=== PATIENT | female | born 1955 | race Caucasian/White ===

== ENCOUNTER 2018-04-01 09:52 | Inpatient (IN) ==
[~2018-04-01 09:52] MED LIST: Bacitracin 50,000 UNIT, Polymyxin B Sulfate 500,000 UNIT, Sodium Chloride IRRigation 1,... IR ONE
[2018-04-01] MEDS ORDERED: CeFAZolin Syr 2,000MG/20 ML 2,000 MG/20 ML SYRINGE IVPB ONE (10:13)
[2018-04-01] MEDS ORDERED: Albuterol 2.5 MG/3 ML NEBULIZER IH ONE (10:13)
[2018-04-01] MEDS ORDERED: Ringers Solution, Lactated 1,000 ML IVC SCH (10:15)
[2018-04-01] MEDS ORDERED: Famotidine 20 MG/2 ML VIAL IVP ONE (10:45)
[2018-04-01] MEDS ORDERED: Acetaminophen IV 1,000 MG/100 ML INFUS..BTL IVPB ONE (10:45)
[2018-04-01] MEDS ORDERED: Gabapentin 300 MG CAPSULE PO ONE (10:45)
--- NOTE | 2018-04-01 10:45 | Anesthesia Evaluation PreOp ---
Date of Encounter: 04/01/18 Time of Encounter: 10:43 - Past History Planned Operation: PLIF L4-5 Cardiac History: Hyperlipidemia Pulmonary History: Smoker (1 ppd) ERGONOMIC SPECIALIST History: Other (lumbar stenosis with radiculopathy bilateral legs, anxiety) Other Medical History: Thyroid (hypo) Anesthesia History: No Prior Anesthetic Complications, Past Anesthesia (bilateral total hip) : No Alcohol Use: none Drug use: none Medications and Allergies Ferrous Sulfate [Iron] 325 mg PO DAILY 10/14/16 [History] Levothyroxine [Synthroid] 112 mcg PO DAILY 10/14/16 [History] Meloxicam 15 mg PO DAILY 10/14/16 [History] Omeprazole [PriLOSEC] 40 mg PO DAILY 10/14/16 [History] Simvastatin [Zocor] 40 mg PO QPM 10/14/16 [History] Tramadol HCl [Ultram] 50 mg PO BID PRN MDD N 10/14/16 [History] Acetaminophen [Tylenol] 1,000 mg PO Q6H PRN 04/01/18 [History] Biotin 10,000 mcg PO DAILY 04/01/18 [History] BuPROPion XL (24 HR) [Wellbutrin XL] 150 mg PO DAILY 04/01/18 [History] Calcium Carbonate [Calcium] 600 mg PO DAILY 04/01/18 [History] Duloxetine HCl [Cymbalta] 60 mg PO DAILY 04/01/18 [History] Gabapentin [Neurontin] 300 mg PO TID 04/01/18 [History] Melatonin 10 mg PO HS PRN 04/01/18 [History] Pyridoxine HCl [Vitamin B-6] 100 mg PO DAILY 04/01/18 [History] Vitamin B Complex [B Complex] 1 each PO DAILY 04/01/18 [History] Allergy/AdvReac Type Severity Reaction Status Date / Time No Known Allergies Allergy Verified 04/01/18 10:44 - Meds/Allergy Pre-op Review Medications Reviewed: Yes Allergies Reviewed: Yes Beta Blockers on Current Med List: No Anesthesia Results - Labs Laboratory Tests 03/30/18 03/30/18 03/30/18 15:38 15:38 15:38 WBC 7.2 Hgb 11.6 Hct 34.8 L Plt Count 286 PT 10.8 INR 1.0 APTT 38.5 H Sodium 133 L Potassium 4.9 Chloride 103 Carbon Dioxide 25 BUN 14 Creatinine 0.71 Est GFR (Non-Af Amer) > 60 Anesthesia Exam Vital Signs/O2 Sat/Glucose, Most Recent Temp Pulse Resp BP Pulse Ox 97.9 F 67 18 135/56 97 04/01/18 10:21 04/01/18 10:21 04/01/18 10:21 04/01/18 10:21 04/01/18 10:21 Height: 1.75 Weight: 64 kg NPO (# of Hours): > 8 hr - HEENT Pupil (Motor): Pupils equal Mallampati: II Denture Type: Upper: Complete, Lower: Complete Oral Opening: Greater than 3 - ERGONOMIC SPECIALIST LOC: Oriented ERGONOMIC SPECIALIST Motor: Normal RUE, Normal LUE, Normal RLE, Normal LLE, Normal Face ERGONOMIC SPECIALIST Sensory: Normal: RUE, LUE, RLE, LLE, Face - Cardiac Rhythm: Regular Murmur: None - Pulmonary Breath Sounds: bilateral Clear Respiratory Effort: Symmetrical Anesthesia Assess/Plan ASA Score: 2 Modified Savage Scale for Level of Consciousness: Cooperative, oriented, and tranquil Anesthetic Plan: General Monitoring Plan: Standard Monitors Recovery Plan: PACU
[2018-04-01] MEDS ORDERED: Ondansetron 4 MG/2 ML VIAL ONE (12:00)
[2018-04-01] MEDS ORDERED: Dexamethasone 4 MG/ML VIAL ONE (12:00)
[2018-04-01] MEDS ORDERED: Lidocaine -MPF 4% 5 ML AMPUL ONE (12:00)
[2018-04-01] MEDS ORDERED: *HR* Succinylcholine 200 MG/10 ML VIAL IVP ONE (12:00)
[2018-04-01] MEDS ORDERED: Lidocaine -MPF 2% 2 ML VIAL ONE (12:00)
[2018-04-01] MEDS ORDERED: *HR* Propofol 200 MG/20 ML VIAL IVP ONE (12:00)
[2018-04-01] MEDS ORDERED: *HR* Midazolam HCl 2 MG/2 ML VIAL ONE (12:00)
--- NOTE | 2018-04-01 13:00 | History & Physical Report ---
Date of Encounter: 04/01/18 Time of Encounter: 12:59 24 Hour HP Update - Instructions Instructions: If the History and Physical is less than 30 days old and was completed prior to A.M. admission and or procedure and has NOT been updated on calendar day of procedure please complete this update prior to performing procedure. - Update Patient reports changes in Medical Condition: No Changes in examination, assessment, or condition: No Changes in Medication: No Preop tests/diagnostics Reviewed: Yes Pre-Op MRSA Screen: Negative Surgery Remains Indicated: Yes Consent for Planned Operative Procedure(s) Verified: Yes - Pre-Operative Checklist Preoperative Checklist Indicated: No Prophylactic Antibiotic Ordered: Yes Home Medications Include Beta Sophia: No Beta Sophia Taken Today (Day of Surgery): No Beta Sophia Taken Yesterday (Day Prior to Surgery): No Is VTE Prophylaxis Indicated?: Yes
[2018-04-01] MEDS ORDERED: *HR* FentaNYL (PF) 100 MCG/2 ML VIAL ONE (13:14)
[2018-04-01] MEDS ORDERED: *HR* Remifentanil 1 MG VIAL IVP ONE (13:28)
[2018-04-01] MEDS ORDERED: EPHEDrine 50 MG/ML VIAL ONE (13:46)
[2018-04-01] MEDS ORDERED: Albuterol 2.5 MG/3 ML NEBULIZER IH PRN (14:25)
[2018-04-01] MEDS ORDERED: *HR* Promethazine 25 MG/ML VIAL IVP PRN (14:25)
--- NOTE | 2018-04-01 16:09 | Orthopedic Operative Note ---
Date of procedure: 04/01/18 Pre-op diagnosis: Spondylolisthesis, lumbar stenosis, lumbar radiculopathy Post-op diagnosis: same Operation/Findings: Posterior lumbar interbody fusion L4-L5: The patient successfully underwent general endotracheal anesthesia. The patient was given antibiotics prior to the start of the procedure. Compression boots and stockings were used for deep vein thrombosis prophylaxis. A Vital catheter was placed. Leads for neuro monitoring were placed on the upper and lower extremities. This included the cranium. The neuro monitoring personnel confirmed there were satisfactory readings prior to the start of the procedure. The patient was turned prone on the Ck table. The back was prepped and draped in the usual sterile fashion. An incision was was marked and centered over the involved levels in the mid line. The incision was deepened through the lumbar fascia. Bovie cautery and Archer elevators were used to reflect the paraspinal musculature at the lateral extent of the transverse processes of the involved levels. Catherine clamps were placed over the spinous processes. An intraoperative lateral fluoroscopy graft was obtained. A conversation was held between the surgeon and radiologist and both confirmed we had the correct operative levels. We then placed pedicle screws in standard fashion with the aid of fluoroscopy and anatomic landmarks. Briefly a starter awl was used. A gearshift was subsequently used to enter the airplane pilot commercial hole via a transpedicular route into the vertebral body. The airplane pilot commercial hole was tapped with an undersized instrument, and subsequently 6.5 x 40 mm pedicle screws were placed bilaterally at the indicated levels. The screws were tested with the aid of the neurologic monitoring staff via pedicle screw stimulation. All reading suggested there was no significant cortical wall breech. The screws were also evaluated fluoro- graphically and appeared to be in satisfactory position. We then turned our attention to the decompression portion of the procedure. We removed the supraspinous and interspinous ligaments and subsequently the insertion of the ligamentum flavum on the undersurface of the proximal lamina was dislodged with a curette. We then removed the ligamentum flavum as well as undercut the facets at this level to decompress the lateral recesses. We also performed a laminectomy. After the decompression which was over and above that which was required to place the interbody graft, the foramen and traversing roots at this level were found to be free and patent. We also took part of the medial facet in order to aid in the decompression. We then protected the neural elements including the thecal sac and traversing nerve root on the right with a dural retractor. We made an annulotomy into the disc space and then removed disc material using lPituitary instruments. We trialed various size grafts after the endplates were prepared for graft insertion. A 10 x 26 enter body graft fit well within the disc space. We obtained some bone from the posterior superior iliac spine through us a separate incision and combined with this with the bone which we had saved from the laminectomy portion of the procedure. This autograft bone was first placed in the anterior portion of the disc space and additional bone was placed within the interbody graft spacer. We then placed the interbody graft spacer obliquely across the disc space towards the midline while protecting the neural elements with a root retractor. When the graft was found to be in satisfactory position the gaming commissioner was removed. We then copiously irrigated the wound. We then decorticated the transverse processes as well as the facet joints of the involved levels to aid in the posterolateral fusion. We placed autograft bone in the lateral gutters over these regions. We then placed rods within the screw heads of the involved levels and first locked the distal screws and then subsequently locked the proximal screws so as to improve and reduce the spondylolisthesis previously seen. We then closed the wound in layers with 1 Vicryl for the fascia, 2-0 Vicryl. Subcutaneous tissue, and Dermabond was used for skin closure. Sterile dressings were placed over the wound. The patient was turned supine on a hospital bed and extubated. All sponge instruments and needle counts were correct at the end of the procedure. The patient tolerated the procedure well without complications. Anesthesia: GETA Surgeon: Jorge Lynne Jr Was there an assistant quality manager present: No Estimated blood loss (cc): 100 Specimen: None Condition: stable Disposition: PACU
[2018-04-01] MEDS: *HR* Morphine 2 MG/ML SYRINGE IVP PRN ×3 (16:40→17:05)
--- NOTE | 2018-04-01 17:08 | Anesthesia Evaluation Post Op ---
Date of Encounter: 04/01/18 Time of Encounter: 17:08 - Vital Signs Vital Signs: Vital Signs/O2 Sat/Glucose, Most Current Temp Pulse Resp BP Pulse Ox 04/01/18 16:53 98.5 F 91 14 169/78 92 04/01/18 16:43 92 18 174/75 95 04/01/18 16:33 103 18 170/80 98 04/01/18 16:23 99.1 F 104 16 159/80 100 - Lungs Lungs: Clear Ascult./Percussion - Airway Airway: Non-obstructed - Cardiovascular Regular Rate, Baseline Rhythm - Mental Status Mental Status: Alert & Oriented, Answers Appropriately - Pain Pain Scale: 2 Pain Scale used: Numeric (1 - 10) - Nausea Vomiting Nausea Vomiting: Not Present - Hydration Hydration: Tolerates oral liquids, Vital catheter - Discharge PostOp Status: Transfer Patient to floor
[2018-04-01] MEDS ORDERED: Melatonin 3 MG TABLET PO PRN (17:53)
[2018-04-01] MEDS ORDERED: Naloxone 0.4 MG/ML INJ IVP PRN (17:53)
[2018-04-01] MEDS ORDERED: *HR* HYDROcodone/Acet 5/325 mg TABLET PO PRN (17:53)
[2018-04-01] MEDS: *HR* OxyCODONE Immed Rel 5 MG TABLET PO PRN ×2 (18:58→23:50)
[2018-04-01] MEDS: Ringers Solution, Lactated 1,000 ML IVC SCH (18:59)
[2018-04-01] MEDS: Acetaminophen 325 MG TABLET PO PRN (23:20)
[2018-04-02] MEDS: Ondansetron 4 MG/2 ML VIAL IVP PRN ×2 (03:07→09:29)
[2018-04-02] MEDS ORDERED: *HR* Promethazine 25 MG/ML VIAL IVP PRN (04:15)
[2018-04-02] MEDS ORDERED: Caffeine/Sodium Benzoate 500 MG in 0.9 % Sodium Chloride 1,000 ML IV ONE (04:27)
[2018-04-02] MEDS: Prochlorperazine 10 MG/2 ML VIAL IVP PRN (05:18)
[2018-04-02] MEDS ORDERED: Caffeine/Sodium Benzoate 500 MG in 0.9 % Sodium Chloride 1,000 ML IV PRN (06:53)
[2018-04-02] MEDS: *HR* OxyCODONE Immed Rel 5 MG TABLET PO PRN ×3 (07:54→19:33)
[2018-04-02] MEDS: Ringers Solution, Lactated 1,000 ML IVC SCH ×2 (07:57→21:52)
[2018-04-02] MEDS ORDERED: BIOTIN 10000 MCG PO SCH (09:00)
[2018-04-02] MEDS: Pyridoxine (B-6) 50 MG TABLET PO SCH (10:50)
[2018-04-02] MEDS: BuPROPion XL (24 HR) 150 MG TABLET PO SCH (10:50)
[2018-04-02] MEDS: Vitamin B Complex/Vit C/Vit E 1 EACH TABLET PO SCH (10:50)
[2018-04-02] MEDS ORDERED: Isovue-370 500 ML INFUS..BTL IV ONE (12:20)
[2018-04-02 17:09] LABS: Basophils % 0.2 %; Hematocrit 29.9 % (35.3-44.9); Hemoglobin 10.3 g/dL (11.5-15.4); Immature Granulocytes % 0.5 % (0-4); Lymphocytes # 1.3 K/mcL (0.6-4.6); Lymphocytes % 9.4 %; Mean Corpuscular HGB Conc 34.4 g/dL (31.6-35.5); Mean Corpuscular Volume 90.1 fL (83.0-100.0); Mean Platelet Volume 10.4 fL (9.4-12.4); Monocytes # 1.2 K/mcL (0.0-1.3); Monocytes % 8.5 %; Neutrophils # 11.5 K/mcL (1.6-8.9); Platelet Count 278 K/mcL (140-400); Red Blood Count 3.32 M/mcL (3.82-4.97); Red Cell Distribution Width 12.6 % (11.5-14.5); Segmented Neutrophils % 81.4 %
[2018-04-02 17:21] LABS: BUN/Creatinine Ratio 10 (6-26); Blood Urea Nitrogen 6 mg/dL (8-23); Calcium 9.1 mg/dL (8.6-10.3); Carbon Dioxide 23 mEq/L (23-29); Chloride 100 mEq/L (98-107); Glucose 119 mg/dL (70-105); Osmolality,Calculated 269 (280-300); Potassium 3.6 mEq/L (3.5-5.1); Sodium 130 mEq/L (136-145); eGFR For Non-African Americans > 60 (> 60)
--- NOTE | 2018-04-02 20:18 | Spine Progress Note ---
Date of Encounter: 04/02/18 Time of Encounter: 20:15 Subjective Principal diagnosis: Spondylolisthesis, lumbar stenosis, lumbar radiculopathy Interval history: The patient complains of headache in the occiput region and posterior neck and upper trapezial region. She states the headache is severe and she has had this ever since she arrived to the floor. Afebrile vital signs are stable. Dressing is clean dry and intact. Neurovascularly intact with regard to bilateral lower extremities. Fires all upper and lower extremity motor groups. Assessment :stable. Concern for spinal headache. Plan we are going to have the patient remain recumbent with head of bed maximum 30 degrees. We have instituted intravenous caffeine without significant change in symptomatology. We ordered a head CT with contrast which was unremarkable. We will continue spinal headache precautions and assess for clinical improvement. No significant durotomy requiring repair was noted intraoperatively. Patient understands and is agreeable to the plan. If headache persists will consider neurology consult. Will add Restoril as sleep aid. Objective Vital signs: Vital Signs Temp Pulse Resp BP Pulse Ox 04/02/18 19:23 99.1 F 97 16 141/61 92 04/02/18 15:03 98.2 F 92 18 167/68 92 04/02/18 10:53 98.5 F 93 18 154/60 92 04/02/18 06:18 99.0 F 91 18 151/67 93 04/02/18 06:04 170/71 04/02/18 05:45 179/69 04/02/18 05:25 180/65 04/02/18 03:50 179/70 04/02/18 02:52 99 F 83 16 171/62 95 04/01/18 23:33 98.3 F 79 17 163/58 97 04/01/18 20:30 98.3 F 83 17 157/67 99 Intake and Output 04/02/18 04/02/18 04/02/18 07:59 15:59 23:59 Intake Total 2101 200 / 200 Output Total 200 / 200 2300 / 2300 300 / 300 Balance 1901 / 1901 -2100 / -2100 -300 / -300 Intake: IV Fluids 2101 Caffeine/Sodium Benzoate 500 MG 1002 / 1002 In 0.9 % Sodium Chloride 1,000 ML @ 1002 mls/hr IV ONCE ONE Rx#:[id number] Lactated Ringers 1,000 ML @ 100 1000 / 1000 mls/hr IVC .Q10H ELIU Rx#: [id number] Ancef 2,000 MG In 0.9 % Sodium 100 / 100 Chloride 100 ML @ 200 mls/hr IVPB Q8H [facility] Rx#:[id number] Oral 200 / 200 Output: Urine 300 / 300 Emesis 200 / 200 Catheter 2300 / 2300 Other: Meal Breakfast Percent of Meal Consumed 10% # Voids 2 Weight 63 kg Patient Weight 04/02/18 23:59 Weight 63 kg - Labs CBC & BMP: 04/02/18 16:47 04/02/18 16:47 Labs: Abnormal lab results WBC 14.1 K/mcL (4.3-11.1) H D 04/02/18 16:47 RBC 3.32 M/mcL (3.82-4.97) L 04/02/18 16:47 Hgb 10.3 g/dL (11.5-15.4) L 04/02/18 16:47 Hct 29.9 % (35.3-44.9) L 04/02/18 16:47 Neutrophils # 11.5 K/mcL (1.6-8.9) H 04/02/18 16:47 Sodium 130 mEq/L (136-145) L 04/02/18 16:47 BUN 6 mg/dL (8-23) L 04/02/18 16:47 Creatinine 0.58 mg/dL (0.60-1.20) L 04/02/18 16:47 Glucose 119 mg/dL (70-105) H 04/02/18 16:47 Calculated Osmolality 269 (280-300) L 04/02/18 16:47 Consult Discharge Plan - Plan Referrals: Julian Patton MD [Primary Care Provider] -
[2018-04-02] MEDS: Acetaminophen 325 MG TABLET PO PRN (21:30)
[2018-04-02] MEDS: Temazepam 15 MG CAPSULE PO PRN (21:31)
[2018-04-03] MEDS: *HR* OxyCODONE Immed Rel 5 MG TABLET PO PRN ×2 (00:15→06:01)
[2018-04-03] MEDS: Acetaminophen 325 MG TABLET PO PRN (03:22)
--- NOTE | 2018-04-03 05:20 | Spine Progress Note ---
Date of Encounter: 04/03/18 Time of Encounter: 05:18 Subjective Principal diagnosis: Spondylolisthesis, lumbar stenosis, lumbar radiculopathy Interval history: The patient complains of headache in the occiput region and posterior neck and upper trapezial region. She states the headache is severe and she has had this ever since she arrived to the floor. She had some improvement compared to yesterday. Was able to get some sleep through the night. Afebrile vital signs are stable. Dressing is clean dry and intact. Neurovascularly intact with regard to bilateral lower extremities. Fires all upper and lower extremity motor groups. Assessment :stable. Concern for spinal headache. Plan we are going to have the patient remain recumbent with head of bed maximum 30 degrees. We have instituted intravenous caffeine without significant change in symptomatology. We ordered a head CT with contrast which was unremarkable. We will continue spinal headache precautions and assess for clinical improvement. No significant durotomy requiring repair was noted intraoperatively. We will keep her maximal head of bed elevated 30 degrees today well on her to mobilize on Friday. Lumbar radiographs would be performed on Friday as well. Objective Vital signs: Vital Signs Temp Pulse Resp BP Pulse Ox 04/03/18 00:17 99.1 F 90 14 143/63 92 04/03/18 00:12 97.9 F 87 17 138/64 98 04/02/18 19:23 99.1 F 97 16 141/61 92 04/02/18 15:03 98.2 F 92 18 167/68 92 04/02/18 10:53 98.5 F 93 18 154/60 92 04/02/18 06:18 99.0 F 91 18 151/67 93 04/02/18 06:04 170/71 04/02/18 05:45 179/69 04/02/18 05:25 180/65 Intake and Output 04/02/18 04/02/18 04/03/18 15:59 23:59 07:59 Intake Total 200 / 200 1000 / 1000 Output Total 2300 / 2300 300 / 300 Balance -2100 / -2100 700 / 700 Intake: IV Fluids 1000 / 1000 Lactated Ringers 1,000 ML @ 100 1000 / 1000 mls/hr IVC .Q10H ELIU Rx#: [id number] Oral 200 / 200 Output: Urine 300 / 300 Catheter 2300 / 2300 Other: Meal Breakfast Percent of Meal Consumed 10% # Voids 2 1 1 - Labs CBC & BMP: 04/02/18 16:47 04/02/18 16:47 Labs: Abnormal lab results WBC 14.1 K/mcL (4.3-11.1) H D 04/02/18 16:47 RBC 3.32 M/mcL (3.82-4.97) L 04/02/18 16:47 Hgb 10.3 g/dL (11.5-15.4) L 04/02/18 16:47 Hct 29.9 % (35.3-44.9) L 04/02/18 16:47 Neutrophils # 11.5 K/mcL (1.6-8.9) H 04/02/18 16:47 Sodium 130 mEq/L (136-145) L 04/02/18 16:47 BUN 6 mg/dL (8-23) L 04/02/18 16:47 Creatinine 0.58 mg/dL (0.60-1.20) L 04/02/18 16:47 Glucose 119 mg/dL (70-105) H 04/02/18 16:47 Calculated Osmolality 269 (280-300) L 04/02/18 16:47 Consult Discharge Plan - Plan Referrals: Julian Patton MD [Primary Care Provider] -
[2018-04-03] MEDS: Vitamin B Complex/Vit C/Vit E 1 EACH TABLET PO SCH (07:48)
[2018-04-03] MEDS: BuPROPion XL (24 HR) 150 MG TABLET PO SCH (07:48)
[2018-04-03] MEDS: Pyridoxine (B-6) 50 MG TABLET PO SCH (07:48)
[2018-04-03] MEDS: Ringers Solution, Lactated 1,000 ML IVC SCH (07:49)
[2018-04-03] MEDS: Ondansetron 4 MG/2 ML VIAL IVP PRN (08:21)
[2018-04-03] MEDS ORDERED: Caffeine/Sodium Benzoate 500 MG in 0.9 % Sodium Chloride 1,000 ML IV ONE (09:30)
[2018-04-03] MEDS ORDERED: Acetaminophen IV 1,000 MG/100 ML INFUS..BTL IVPB PRN (09:31)
[2018-04-03] MEDS: Prochlorperazine 10 MG/2 ML VIAL IVP PRN (11:32)
[2018-04-03] MEDS: *HR* Morphine 2 MG/ML SYRINGE IVP PRN ×2 (14:47→20:22)
[2018-04-04] MEDS: *HR* Morphine 2 MG/ML SYRINGE IVP PRN ×6 (01:40→20:16)
[2018-04-04] MEDS: Temazepam 15 MG CAPSULE PO PRN (01:40)
[2018-04-04] MEDS: Ringers Solution, Lactated 1,000 ML IVC SCH ×2 (06:38→14:13)
[2018-04-04] MEDS: Vitamin B Complex/Vit C/Vit E 1 EACH TABLET PO SCH (09:55)
[2018-04-04] MEDS: BuPROPion XL (24 HR) 150 MG TABLET PO SCH (09:56)
[2018-04-04] MEDS: Pyridoxine (B-6) 50 MG TABLET PO SCH (10:07)
--- NOTE | 2018-04-04 10:45 | Orthopedics Progress Note ---
Date of Encounter: 04/04/18 Time of Encounter: 10:44 Subjective Principal diagnosis: Spondylolisthesis, lumbar stenosis, lumbar radiculopathy Interval history: S: Patient is seen today and has complaints of back pain and headaches. O: Afebrile and vital signs are stable Neurovascularly intact distally A: CSF Leak P: On OR schedule tomorrow with Dr. Lynne NPO p MN Objective Vital signs: Vital Signs Temp Pulse Resp BP Pulse Ox 04/04/18 08:04 98.9 F 100 22 174/68 94 04/04/18 03:37 98.6 F 102 16 168/74 94 04/03/18 23:29 98.2 F 96 16 177/69 94 04/03/18 18:35 97.8 F 101 16 145/48 94 04/03/18 17:43 98.1 F 102 16 174/68 94 04/03/18 11:42 98.3 F 110 20 172/77 92 Intake and Output 04/03/18 04/04/18 04/04/18 23:59 07:59 15:59 Intake Total 1000 / 1000 Output Total 550 / 550 Balance 450 / 450 Intake: IV Fluids 1000 / 1000 Lactated Ringers 1,000 ML @ 100 1000 / 1000 mls/hr IVC .Q10H [facility] Rx#: [id number] Output: Urine 550 / 550 Other: # Voids 1 - Labs CBC & BMP: 04/02/18 16:47 04/02/18 16:47 Labs: Abnormal lab results WBC 14.1 K/mcL (4.3-11.1) H D 04/02/18 16:47 RBC 3.32 M/mcL (3.82-4.97) L 04/02/18 16:47 Hgb 10.3 g/dL (11.5-15.4) L 04/02/18 16:47 Hct 29.9 % (35.3-44.9) L 04/02/18 16:47 Neutrophils # 11.5 K/mcL (1.6-8.9) H 04/02/18 16:47 Sodium 130 mEq/L (136-145) L 04/02/18 16:47 BUN 6 mg/dL (8-23) L 04/02/18 16:47 Creatinine 0.58 mg/dL (0.60-1.20) L 04/02/18 16:47 Glucose 119 mg/dL (70-105) H 04/02/18 16:47 Calculated Osmolality 269 (280-300) L 04/02/18 16:47 Consult Discharge Plan - Plan Referrals: Julian Patton MD [Primary Care Provider] -
[2018-04-05] MEDS: Ondansetron 4 MG/2 ML VIAL IVP PRN (00:02)
[2018-04-05] MEDS: *HR* Morphine 2 MG/ML SYRINGE IVP PRN ×6 (00:02→16:15)
[2018-04-05] MEDS: Ringers Solution, Lactated 1,000 ML IVC SCH ×3 (00:06→23:13)
[2018-04-05] MEDS: Vitamin B Complex/Vit C/Vit E 1 EACH TABLET PO SCH (08:18)
[2018-04-05] MEDS: BuPROPion XL (24 HR) 150 MG TABLET PO SCH (08:19)
[2018-04-05] MEDS: Pyridoxine (B-6) 50 MG TABLET PO SCH (08:19)
[2018-04-05 10:26] LABS: Basophils % 0.2 %; Eosinophils % 0.2 %; Hematocrit 28.4 % (35.3-44.9); Hemoglobin 9.8 g/dL (11.5-15.4); Immature Granulocytes % 0.3 % (0-4); Lymphocytes # 1.3 K/mcL (0.6-4.6); Lymphocytes % 10.5 %; Mean Corpuscular HGB Conc 34.5 g/dL (31.6-35.5); Mean Corpuscular Hemoglobin 30.4 pg (28.0-33.3); Mean Corpuscular Volume 88.2 fL (83.0-100.0); Mean Platelet Volume 9.8 fL (9.4-12.4); Monocytes % 8.4 %; Neutrophils # 9.8 K/mcL (1.6-8.9); Platelet Count 304 K/mcL (140-400); Red Blood Count 3.22 M/mcL (3.82-4.97); Red Cell Distribution Width 12.2 % (11.5-14.5); Segmented Neutrophils % 80.4 %
[2018-04-05 10:34] LABS: INR 1.1; Prothrombin Time 12.5 Seconds (9.4-12.1)
[2018-04-05 10:37] LABS: Activated Partial Thrombo Time 31.3 Seconds (26.0-36.0)
[2018-04-05 10:44] LABS: BUN/Creatinine Ratio 34 (6-26); Blood Urea Nitrogen 11 mg/dL (8-23); Calcium 8.5 mg/dL (8.6-10.3); Carbon Dioxide 24 mEq/L (23-29); Chloride 97 mEq/L (98-107); Glucose 107 mg/dL (70-105); Osmolality,Calculated 268 (280-300); Potassium 3.3 mEq/L (3.5-5.1); Sodium 129 mEq/L (136-145); eGFR For Non-African Americans > 60 (> 60)
[2018-04-05] MEDS ORDERED: ceFAZolin 1,000 MG in Water for inj. (sterile) 20 ML 10 ML IVP ONE (15:00)
--- NOTE | 2018-04-05 16:29 | Anesthesia Evaluation PreOp ---
Date of Encounter: 04/05/18 Time of Encounter: 18:40 - Past History Planned Operation: Closure lumbar seroma (CSF leak) Cardiac History: Hyperlipidemia Pulmonary History: Smoker TEST CARRIER History: Other (lumbar stenosis with radiculopathy, anxiety) Other Medical History: Thyroid (hypothyroidism), Other (hyponatremia) Anesthesia History: No Prior Anesthetic Complications, Past Anesthesia (lizzie hip, posterior L4-5 on 04-01-18) Alcohol Use: none Drug use: none Medications and Allergies Ferrous Sulfate [Iron] 325 mg PO DAILY 10/14/16 [History] Levothyroxine [Synthroid] 112 mcg PO DAILY 10/14/16 [History] Meloxicam 15 mg PO DAILY 10/14/16 [History] Omeprazole [PriLOSEC] 40 mg PO DAILY 10/14/16 [History] Simvastatin [Zocor] 40 mg PO QPM 10/14/16 [History] Tramadol HCl [Ultram] 50 mg PO BID PRN MDD N 10/14/16 [History] Acetaminophen [Tylenol] 1,000 mg PO Q6H PRN 04/01/18 [History] Biotin 10,000 mcg PO DAILY 04/01/18 [History] BuPROPion XL (24 HR) [Wellbutrin XL] 150 mg PO DAILY 04/01/18 [History] Calcium Carbonate [Calcium] 600 mg PO DAILY 04/01/18 [History] Duloxetine HCl [Cymbalta] 60 mg PO DAILY 04/01/18 [History] Gabapentin [Neurontin] 300 mg PO TID 04/01/18 [History] Melatonin 10 mg PO HS PRN 04/01/18 [History] Pyridoxine HCl [Vitamin B-6] 100 mg PO DAILY 04/01/18 [History] Vitamin B Complex [B Complex] 1 each PO DAILY 04/01/18 [History] Allergy/AdvReac Type Severity Reaction Status Date / Time No Known Allergies Allergy Verified 04/01/18 10:44 - Meds/Allergy Pre-op Review Medications Reviewed: Yes Allergies Reviewed: Yes Beta Blockers on Current Med List: No Anesthesia Results - Labs 04/05/18 10:15 04/05/18 10:15 Anesthesia Exam Last Vital Signs Temp 98.5 F 04/05/18 15:47 Pulse 85 04/05/18 15:47 Resp 16 04/05/18 15:47 BP 161/66 04/05/18 15:47 Pulse Ox 96 04/05/18 15:47 Weight: 63 kg - HEENT Pupil (Motor): Pupils equal, EOMI Mallampati: III Teeth: Edentulous Oral Opening: Greater than 3 - TEST CARRIER LOC: Oriented - Cardiac Rhythm: Regular Murmur: None - Pulmonary Breath Sounds: bilateral Clear Respiratory Effort: Symmetrical Anesthesia Assess/Plan ASA Score: 3 (hyponatremia, hld, smoker, lumbar radiculopathy (pain only, no neurological symptoms), hyponatremia) Modified Minetto Scale for Level of Consciousness: Cooperative, oriented, and tranquil Anesthetic Plan: General Monitoring Plan: Standard Monitors Recovery Plan: PACU
[2018-04-05] MEDS ORDERED: *HR* FentaNYL (PF) 100 MCG/2 ML VIAL ONE ×2 (16:49→19:09)
[2018-04-05] MEDS ORDERED: *HR* Midazolam HCl 2 MG/2 ML VIAL ONE (16:49)
[2018-04-05] MEDS ORDERED: *HR* Propofol 200 MG/20 ML VIAL IVP ONE (16:49)
[2018-04-05] MEDS ORDERED: *HR* Succinylcholine 200 MG/10 ML VIAL IVP ONE (16:52)
[2018-04-05] MEDS ORDERED: Lidocaine -MPF 2% 2 ML VIAL ONE (16:52)
[2018-04-05] MEDS ORDERED: Albuterol 2.5 MG/3 ML NEBULIZER IH ONE (18:30)
[2018-04-05] MEDS ORDERED: Albuterol 2.5 MG/3 ML NEBULIZER ONE (18:32)
[2018-04-05] MEDS ORDERED: Dexamethasone 4 MG/ML VIAL ONE (19:08)
[2018-04-05] MEDS ORDERED: Ondansetron 4 MG/2 ML VIAL ONE (19:08)
[2018-04-05] MEDS ORDERED: *HR* Rocuronium Bromide 50 MG/5 ML VIAL ONE (19:12)
[2018-04-05] MEDS ORDERED: Bacitracin 50,000 UNIT, Polymyxin B Sulfate 500,000 UNIT, Sodium Chloride IRRigation 1,... IR ONE (19:15)
[2018-04-05] MEDS ORDERED: *HR* PHENYLEPHRINE 1,000 MCG/10 ML SYRINGE IVP ONE (19:23)
[2018-04-05] MEDS ORDERED: Neostigmine Methylsulfate 3 MG/3 ML SYRINGE ONE (19:54)
[2018-04-05] MEDS ORDERED: *HR* Morphine 10 MG/ML VIAL ONE (19:54)
--- NOTE | 2018-04-05 20:19 | Orthopedic Operative Note ---
Date of procedure: 04/05/18 Pre-op diagnosis: Lumbar seroma Post-op diagnosis: same Operation/Findings: Closure lumbar seroma: The patient was brought to the operative theater where she underwent general endotracheal anesthesia. She was given antibiotics prior to the start of the procedure. Compression boots and stockings were used for deep vein thrombosis prophylaxis. The patient was placed prone on a Ck table. The back was prepped and draped in the usual sterile fashion. The previous midline incision was reopened using a 10 blade. We used Bovie cautery to make thedeper incision and then this incision was deepened through the lumbar fascia. Bovie cautery and Archer elevators were used to reflect the paraspinal musculature to the lateral extent of the L4-5 facet joints bilaterally. There was a mild amount of seroma fluid in the deep wound bed. We drained off any seroma or serosanguineous fluid and identified a small amount of CSF emanating from the left L4-5 facet joint. We placed DuraGen patch over the thecal sac and over this area near the left sided facet joint. We then placed DuraSeal over the DuraGen patch. We watched for several minutes to make sure there was no seroma fluid. We then closed the wound in layers with 1 Vicryl for the fascia, 2-0 Vicryl for the subcutaneous tissue, and Dermabond was used for skin closure. We irrigated the wound after fascial closure. Sterile dressings were placed over the wound, the patient was turned supine in a hospital bed, and was extubated in the operative theater. All sponge needles and instrument counts were correct at the end of the procedure. The patient tolerated the procedure well without complications. Anesthesia: GETA Surgeon: Jorge Lynne Jr Was there an bilingual executive assistant present: No Estimated blood loss (cc): 15 Specimen: None Condition: stable Disposition: PACU
--- NOTE | 2018-04-05 21:18 | Anesthesia Evaluation Post Op ---
Date of Encounter: 04/05/18 Time of Encounter: 21:00 - Vital Signs Vital Signs: Vital Signs/O2 Sat/Glucose, Most Current Temp Pulse Resp BP Pulse Ox 04/05/18 21:09 98.2 F 91 16 148/65 95 04/05/18 20:55 98.4 F 87 16 148/61 96 04/05/18 20:46 82 16 136/55 96 04/05/18 20:36 81 16 136/55 93 04/05/18 20:26 98.7 F 95 16 136/64 100 - Lungs Lungs: Clear Ascult./Percussion - Airway Airway: Non-obstructed - Cardiovascular Regular Rate - Mental Status Mental Status: Alert & Oriented, Answers Appropriately - Pain Pain Scale: 1 - Nausea Vomiting Nausea Vomiting: Not Present - Hydration Hydration: Tolerates oral liquids, Ice chips, Vital catheter - Discharge PostOp Status: Transfer Patient to floor
[2018-04-05] MEDS ORDERED: Temazepam 15 MG CAPSULE PO PRN (21:55)
[2018-04-05] MEDS ORDERED: Naloxone 0.4 MG/ML INJ IVP PRN (21:55)
[2018-04-05] MEDS ORDERED: Ondansetron 4 MG/2 ML VIAL IVP PRN (21:55)
[2018-04-05] MEDS ORDERED: Melatonin 3 MG TABLET PO PRN (21:55)
[2018-04-05] MEDS ORDERED: *HR* HYDROcodone/Acet 5/325 mg TABLET PO PRN (21:55)
[2018-04-06] MEDS: Acetaminophen 325 MG TABLET PO PRN ×3 (04:40→22:50)
[2018-04-06] MEDS: Vitamin B Complex/Vit C/Vit E 1 EACH TABLET PO SCH (08:19)
[2018-04-06] MEDS: BuPROPion XL (24 HR) 150 MG TABLET PO SCH (08:20)
[2018-04-06] MEDS: *HR* OxyCODONE Immed Rel 5 MG TABLET PO PRN (17:12)
[2018-04-06] MEDS: Ringers Solution, Lactated 1,000 ML IVC SCH (22:55)
[2018-04-07] MEDS: Ringers Solution, Lactated 1,000 ML IVC SCH ×5 (00:02→05:28)
[2018-04-07] MEDS: *HR* OxyCODONE Immed Rel 5 MG TABLET PO PRN ×3 (04:34→17:31)
--- NOTE | 2018-04-07 07:41 | Spine Progress Note ---
Date of Encounter: 04/06/18 Time of Encounter: 16:30 Subjective Principal diagnosis: Spondylolisthesis, lumbar stenosis, lumbar radiculopathy Interval history: Patient headache essentially resolved. AFVSS. Fires all lower extremity motor groups. Dressing C/d/I. Stable. Mobilize. Discharge planning. Objective Vital signs: Vital Signs Temp Pulse Resp BP Pulse Ox 04/07/18 05:32 165/64 04/07/18 04:15 100.0 F H 91 16 181/69 92 04/06/18 23:16 99.3 F 84 17 168/67 94 04/06/18 18:22 99.0 F 86 16 148/60 93 04/06/18 14:51 98.3 F 74 16 144/86 95 04/06/18 10:11 98.1 F 78 16 148/76 96 Intake and Output 04/06/18 04/06/18 04/07/18 15:59 23:59 07:59 Intake Total 480 / 480 2100 / 2100 550 / 550 Output Total 300 / 300 600 / 600 375 / 375 Balance 180 / 180 1500 / 1500 175 / 175 Intake: IV Fluids 2100 / 2100 Lactated Ringers 1,000 ML @ 100 1000 / 1000 mls/hr IVC .Q10H [facility] Rx#: [id number] Oral 480 / 480 550 / 550 Output: Urine 300 / 300 600 / 600 375 / 375 Other: Meal Lunch Percent of Meal Consumed 40% # Voids 1 1 Weight 63.3 kg Patient Weight 04/07/18 23:59 Weight 63.3 kg - Labs CBC & BMP: 04/05/18 10:15 04/05/18 10:15 Labs: Abnormal lab results WBC 12.2 K/mcL (4.3-11.1) H 04/05/18 10:15 RBC 3.22 M/mcL (3.82-4.97) L 04/05/18 10:15 Hgb 9.8 g/dL (11.5-15.4) L 04/05/18 10:15 Hct 28.4 % (35.3-44.9) L 04/05/18 10:15 Neutrophils # 9.8 K/mcL (1.6-8.9) H 04/05/18 10:15 PT 12.5 Seconds (9.4-12.1) H 04/05/18 10:15 Sodium 129 mEq/L (136-145) L 04/05/18 10:15 Potassium 3.3 mEq/L (3.5-5.1) L 04/05/18 10:15 Chloride 97 mEq/L (98-107) L 04/05/18 10:15 Creatinine 0.32 mg/dL (0.60-1.20) L 04/05/18 10:15 BUN/Creatinine Ratio 34 (6-26) H 04/05/18 10:15 Glucose 107 mg/dL (70-105) H 04/05/18 10:15 Calculated Osmolality 268 (280-300) L 04/05/18 10:15 Calcium 8.5 mg/dL (8.6-10.3) L 04/05/18 10:15 Consult Discharge Plan - Plan Referrals: Julian Patton MD [Primary Care Provider] -
[2018-04-07] MEDS: Acetaminophen 325 MG TABLET PO PRN ×2 (08:17→21:07)
[2018-04-07] MEDS: BuPROPion XL (24 HR) 150 MG TABLET PO SCH (08:17)
[2018-04-07] MEDS: Vitamin B Complex/Vit C/Vit E 1 EACH TABLET PO SCH (08:17)
[2018-04-07 19:12] VITALS: BP 154/65
--- NOTE | 2018-04-08 09:31 | Discharge Summary ---
- NOTES TO OUTPATIENT PROVIDER Notes to Outpatient Provider: Follow-up in [facility] in 2 weeks Orders not resulted at time of discharge: Pending orders 04/01/18 15:54 XR fluoroscopy <1 hr [XR] Routine Date of Encounter: 04/07/18 Time of Encounter: 16:20 - Discharge Diagnosis (1) Spondylolisthesis at L4-L5 level Priority: Primary Status: Chronic (2) Lumbar stenosis without neurogenic claudication Priority: Secondary Status: Chronic (3) Lumbar radiculopathy Priority: Secondary Status: Chronic (4) Seroma after procedure Priority: Secondary Status: Acute - Hospital Course Hospital course: Ms. Quintero is a 63 year old female The patient l postoperative course was complicated by severe headaches postoperatively. She on postoperative day 3 she developed serous drainage from her wound. She was clinically diagnosed as having a lumbar seroma. She was taken back to the operative theater for irrigation and closure of the seroma. She had near immediate resolution of her headaches. She progressed from intravenous analgesic needs to oral analgesic needs only. Remained neurovascularly intact and mobilized satisfactorily. All intraoperative and/or postoperative radiographic studies were satisfactory. Patient is discharged with plan for rehabilitation and follow-up in 2 weeks post discharge on analgesic medication and patient's home medications. - Time Spent with Patient Total time spent providing and/or coordinating discharge services: - Discharge Medications Prescriptions: Tramadol HCl [Ultram] 50 mg PO BID PRN 7 Days #30 tablet MDD N PRN Reason: Pain Home Medications: Ferrous Sulfate [Iron] 325 mg PO DAILY 10/14/16 [History] Levothyroxine [Synthroid] 112 mcg PO DAILY 10/14/16 [History] Meloxicam 15 mg PO DAILY 10/14/16 [History] Omeprazole [PriLOSEC] 40 mg PO DAILY 10/14/16 [History] Simvastatin [Zocor] 40 mg PO QPM 10/14/16 [History] Acetaminophen [Tylenol] 1,000 mg PO Q6H PRN 04/01/18 [History] Biotin 10,000 mcg PO DAILY 04/01/18 [History] BuPROPion XL (24 HR) [Wellbutrin Xl] 150 mg PO DAILY 04/01/18 [History] Calcium Carbonate [Calcium] 600 mg PO DAILY 04/01/18 [History] Duloxetine HCl [Cymbalta] 60 mg PO DAILY 04/01/18 [History] Gabapentin [Neurontin] 300 mg PO TID 04/01/18 [History] Melatonin 10 mg PO HS PRN 04/01/18 [History] Pyridoxine HCl [Vitamin B-6] 100 mg PO DAILY 04/01/18 [History] Vitamin B Complex [B Complex] 1 each PO DAILY 04/01/18 [History] Tramadol HCl [Ultram] 50 mg PO BID PRN 7 Days #30 tablet MDD N 04/08/18 [Rx] Allergies/Adverse Reactions: Allergy/AdvReac Type Severity Reaction Status Date / Time No Known Allergies Allergy Verified 04/01/18 10:44 Date of admission: 04/01/18 18:07 Primary care physician: Julian Patton MD Consults: 04/05/18 21:55 Consult to Spine Navigator [CONS] [CONS] Routine - Impressions ITS Impressions Lumbar Spine X-Ray 04/01/18 15:54 IMPRESSION: Intraoperative image of the lumbar spine as described. D/ / Papa Lee MD / Papa Lee MD Interpreting Provider: Papa Lee MD Head CT 04/02/18 13:30 IMPRESSION: No acute intracranial abnormality. D/ / 04/02/2018 15:05:48 Cassie Cabral MD / [facility] Interpreting Provider: Cassie Cabral MD Lumbar Spine X-Ray 04/06/18 08:20 IMPRESSION: Baseline postop lumbar spine with postsurgical changes at L4-L5 and multilevel degenerative disc changes as noted. D/ / Papa Lee MD / Papa Lee MD Interpreting Provider: Papa Lee MD - Patient Status Disposition: Home Health Service Condition: Good Functional capacity at discharge: uses cane/walker Overall status at discharge: patient is progressing back to baseline - Discharge Instructions Follow Up With: Julian Patton MD [Primary Care Provider] - - Diet and Activity Activity: as per physical therapy
== END 2018-04-07 21:42 | disposition home health service (06) | DRG 454 ==
LOC: SAMDAY 09:52 → 3NENU 18:07
PROVIDERS: ADMIT Orthopaedic Surgery Orthopaedic Surgery of the Spine; ATTEND Orthopaedic Surgery Orthopaedic Surgery of the Spine

== ENCOUNTER 2019-12-01 06:12 | Inpatient (IN) ==
[2019-12-01] MEDS ORDERED: CeFAZolin Syr 2,000MG/20 ML 2,000 MG/20 ML SYRINGE IVPB ONE (06:47)
[2019-12-01] MEDS ORDERED: *HR* Vasopressin 20 UNIT/ML VIAL ONE (06:53)
[2019-12-01] MEDS ORDERED: Ringers Solution, Lactated 1,000 ML IVC SCH ×2 (07:00→10:12)
[2019-12-01] MEDS ORDERED: Lidocaine -MPF 2% 2 ML VIAL ONE (07:04)
[2019-12-01] MEDS ORDERED: Vancomycin 1,000 MG VIAL ONE (07:06)
[2019-12-01] MEDS ORDERED: Ethanol\\Acetic Acid\\Na Ace\\Ben 1,000 ML IRRIG.SOLN IR ONE (07:06)
[2019-12-01] MEDS ORDERED: *HR* Succinylcholine 200 MG/10 ML VIAL IVP ONE (07:08)
[2019-12-01] MEDS ORDERED: *HR* HYDROmorphone 2 MG TABLET PO PRN (07:15)
[2019-12-01] MEDS ORDERED: *HR* OxyCODONE Immed Rel 5 MG TABLET PO PRN ×2 (07:15→10:12)
[2019-12-01] MEDS ORDERED: Acetaminophen IV 1,000 MG/100 ML INFUS..BTL IVPB ONE (07:15)
[2019-12-01] MEDS ORDERED: Famotidine 20 MG/2 ML VIAL IVP ONE (07:15)
[2019-12-01] MEDS ORDERED: *HR* Promethazine 25 MG/ML VIAL IVP PRN ×2 (07:15→10:12)
[2019-12-01] MEDS ORDERED: Pregabalin 75 MG CAPSULE PO ONE (07:15)
[2019-12-01] MEDS ORDERED: *HR* HYDROmorphone (PF) 1 MG/ML SYRINGE IVP PRN (07:15)
[2019-12-01] MEDS ORDERED: *HR* Labetalol 20 MG/4 ML SYRINGE IVP PRN (07:15)
[2019-12-01] MEDS ORDERED: Tranexamic Acid 1,000 MG/10 ML VIAL ONE ×2 (07:33)
[2019-12-01] MEDS ORDERED: *HR* FentaNYL (PF) 100 MCG/2 ML VIAL ONE (07:34)
[2019-12-01] MEDS ORDERED: *HR* Propofol 200 MG/20 ML VIAL IVP ONE (07:34)
[2019-12-01] MEDS ORDERED: Lidocaine HCL 4 ML Topical Solution (Laryng-O-Jet Kit Sterile Pak) TP ONE (07:42)
[2019-12-01] MEDS ORDERED: *HR* HYDROMORPHONE 2 MG/ML VIAL ONE (07:57)
[2019-12-01] MEDS ORDERED: Aspirin Enteric Coated 81 MG Tablet PO SCH (09:00)
[2019-12-01] MEDS ORDERED: *HR* Magnesium Sulfate 1 GM/2 ML VIAL ONE (09:52)
[2019-12-01] MEDS ORDERED: MOM Conc 10 ML UD.LIQ PO PRN (10:12)
[2019-12-01] MEDS ORDERED: Dextrose Gel 15 GM/37.5 ML TUBE PO PRN ×2 (10:12)
[2019-12-01] MEDS ORDERED: Sennosides 8.6 MG TABLET PO PRN (10:12)
[2019-12-01] MEDS ORDERED: Ondansetron 4 MG/2 ML VIAL IVP PRN (10:12)
[2019-12-01] MEDS ORDERED: *HR* Dextrose 50 % in Water (Vial) 50 ML VIAL IVP PRN (10:12)
[2019-12-01] MEDS ORDERED: D5% in Water 1,000 ML IVC PRN (10:12)
[2019-12-01] MEDS ORDERED: HYDROcodone BIT/Homatropine 5 MG TABLET PO PRN (10:12)
[2019-12-01] MEDS ORDERED: Naloxone 0.4 MG/ML INJ IVP PRN (10:12)
[2019-12-01 10:31] LABS: Hematocrit 34.6 % (35.3-44.9)
[2019-12-01] MEDS ORDERED: Ipratropium/Albuterol Neb 3 ML IH PRN (10:54)
[2019-12-01] MEDS: Ascorbic Acid 500 MG TABLET PO SCH ×2 (11:30→16:30)
[2019-12-01] MEDS: Multivit/Ca/Min/Fe/FA 1 TAB TABLET PO SCH (11:30)
[2019-12-01] MEDS: Insulin LISPRO 300 UNITS/3 ML VIAL SQ SCH ×2 (13:29→16:43)
[2019-12-01] MEDS: CeFAZolin 2 GM/120 ML BAG IVPB SCH (18:04)
[2019-12-01] MEDS ORDERED: Insulin LISPRO 300 UNITS/3 ML VIAL SQ SCH (21:00)
[2019-12-02] MEDS: CeFAZolin 2 GM/120 ML BAG IVPB SCH (00:44)
[2019-12-02 07:26] LABS: Basophils # 0.1 K/mcL (0.0-0.2); Basophils % 0.6 %; Eosinophils % 0.2 %; Hematocrit 29.3 % (35.3-44.9); Hemoglobin 9.7 g/dL (11.5-15.4); Immature Granulocytes % 0.5 % (0-4); Lymphocytes # 1.5 K/mcL (0.6-4.6); Lymphocytes % 15.3 %; Mean Corpuscular HGB Conc 33.1 g/dL (31.6-35.5); Mean Corpuscular Hemoglobin 30.1 pg (28.0-33.3); Mean Platelet Volume 10.2 fL (9.4-12.4); Monocytes # 0.8 K/mcL (0.0-1.3); Neutrophils # 7.2 K/mcL (1.6-8.9); Platelet Count 261 K/mcL (140-400); Red Blood Count 3.22 M/mcL (3.82-4.97); Red Cell Distribution Width 12.6 % (11.5-14.5); Segmented Neutrophils % 75.4 %; White Blood Count 9.6 K/mcL (4.3-11.1)
[2019-12-02 07:47] LABS: BUN/Creatinine Ratio 14 (6-26); Blood Urea Nitrogen 9 mg/dL (8-23); Calcium 8.4 mg/dL (8.6-10.3); Carbon Dioxide 25 mEq/L (23-29); Chloride 103 mEq/L (98-107); Glucose 88 mg/dL (70-105); Osmolality,Calculated 276 (280-300); Potassium 3.9 mEq/L (3.5-5.1); Sodium 134 mEq/L (136-145); eGFR For African Americans > 60 (> 60); eGFR For Non-African Americans > 60 (> 60)
[2019-12-02] MEDS: Ascorbic Acid 500 MG TABLET PO SCH (08:29)
[2019-12-02] MEDS: Multivit/Ca/Min/Fe/FA 1 TAB TABLET PO SCH (08:30)
[2019-12-02] MEDS ORDERED: Aspirin Enteric Coated 81 MG Tablet PO SCH (09:00)
[2019-12-02 10:55] VITALS: BP 123/52
[2019-12-02] MEDS: Insulin LISPRO 300 UNITS/3 ML VIAL SQ SCH (11:14)
== END 2019-12-02 11:45 | disposition home or self-care (01) | DRG 468 ==
LOC: SAMDAY 06:12 → 3NENU 10:32
PROVIDERS: ADMIT Orthopaedic Surgery; ATTEND Orthopaedic Surgery

== ENCOUNTER 2020-03-06 11:31 | Inpatient (IN) ==
[2020-03-06] MEDS ORDERED: Ketorolac 15 MG/ML VIAL IVP PRN (12:00)
[2020-03-06] MEDS ORDERED: *HR* OxyCODONE Immed Rel 5 MG TABLET PO PRN (12:00)
[2020-03-06] MEDS ORDERED: Ondansetron 4 MG/2 ML VIAL IVP PRN ×2 (12:00→16:46)
[2020-03-06] MEDS ORDERED: *HR* HYDROmorphone PF 0.5 MG/0.5 ML SYRINGE IVP PRN (12:00)
[2020-03-06] MEDS ORDERED: CeFAZolin Syr 2,000MG/20 ML 2,000 MG/20 ML SYRINGE IVPB ONE (12:25)
[2020-03-06] MEDS ORDERED: Dexamethasone 4 MG/ML VIAL ONE ×2 (12:33→12:51)
[2020-03-06] MEDS ORDERED: *HR* Propofol 200 MG/20 ML VIAL IVP ONE (12:33)
[2020-03-06] MEDS ORDERED: Lidocaine -MPF 2% 2 ML VIAL ONE (12:33)
[2020-03-06] MEDS ORDERED: Ondansetron 4 MG/2 ML VIAL ONE (12:33)
[2020-03-06] MEDS ORDERED: *HR* Rocuronium Bromide 50 MG/5 ML VIAL ONE ×2 (12:33→14:07)
[2020-03-06] MEDS ORDERED: Lidocaine -MPF 1% 5 ML AMPUL ONE (12:34)
[2020-03-06] MEDS ORDERED: *HR* FentaNYL (PF) 100 MCG/2 ML VIAL ONE (12:50)
[2020-03-06] MEDS: Ringers Solution, Lactated 1,000 ML IVC SCH ×2 (12:53→15:44)
[2020-03-06] MEDS ORDERED: Albumin Human 5% 25.0 GM/500 ML IV.SOLN ONE (13:49)
[2020-03-06] MEDS ORDERED: *HR* Vasopressin 20 UNIT/ML VIAL ONE (13:49)
[2020-03-06 14:17] LABS: VBG Base Excess -2 mEq/L; VBG Chloride 101 mEq/L (98-107); VBG Glucose 134 mg/dl (65-95); VBG HCO3 25 mEq/L (21-27); VBG Ionized Calcium 1.16 mmol/L (1.15-1.35); VBG Oxygen Saturation 87 %; VBG PCO2 54 mmHg (41-51); VBG PH 7.27 pH Units (7.32-7.42); VBG PO2 61 mmHg (25-50); VBG Total CO2 27 mEq/L
[2020-03-06 16:01] LABS: Hematocrit 22.2 % (35.3-44.9)
[2020-03-06 16:07] LABS: Hemoglobin 6.9 g/dL (11.5-15.4)
[2020-03-06] MEDS ORDERED: Naloxone 0.4 MG/ML INJ IVP PRN (16:46)
[2020-03-06] MEDS ORDERED: 0.9 % Sodium Chloride 250 ML ONE ×2 (17:06→23:35)
[2020-03-06] MEDS: 0.9 % Sodium Chloride 1,000 ML IVC SCH (17:25)
[2020-03-06] MEDS: *HR* HYDROcodone/Acet 5/325 mg TABLET PO PRN ×2 (17:29→21:32)
[2020-03-06] MEDS: Ketorolac 15 MG/ML VIAL IVP SCH ×2 (17:29→23:41)
[2020-03-06] MEDS: Ipratropium/Albuterol Neb 3 ML IH SCH ×3 (17:31→19:52)
[2020-03-06] MEDS: Gabapentin 300 MG CAPSULE PO SCH (20:05)
[2020-03-06] MEDS: Sennosides/Docusate Sodium TABLET PO SCH (20:05)
[2020-03-06] MEDS: Famotidine 20 MG TABLET PO SCH (20:05)
[2020-03-06] MEDS: Melatonin 3 MG TABLET PO SCH (20:05)
[2020-03-06] MEDS: *HR* Heparin 5,000 UNIT/ML VIAL SQ SCH (21:32)
[2020-03-07] MEDS: *HR* HYDROcodone/Acet 5/325 mg TABLET PO PRN ×4 (04:10→20:10)
[2020-03-07] MEDS: Ipratropium/Albuterol Neb 3 ML IH SCH ×7 (04:18→23:48)
[2020-03-07 05:05] LABS: % Iron Saturation 26 % (15-50); BUN/Creatinine Ratio 16 (6-26); Blood Urea Nitrogen 9 mg/dL (8-23); Calcium 8.1 mg/dL (8.6-10.3); Carbon Dioxide 22 mEq/L (23-29); Chloride 106 mEq/L (98-107); Glucose 123 mg/dL (70-105); Iron 70 mcg/dL (50-170); Magnesium 1.8 mg/dL (1.6-2.6); Osmolality,Calculated 268 (280-300); Potassium 4.4 mEq/L (3.5-5.1); Sodium 129 mEq/L (136-145); Transferrin 196 mg/dL (203-362); eGFR For African Americans > 60 (> 60); eGFR For Non-African Americans > 60 (> 60)
[2020-03-07 05:06] LABS: Hematocrit 29.7 % (35.3-44.9); Mean Corpuscular HGB Conc 32.7 g/dL (31.6-35.5); Mean Corpuscular Hemoglobin 28.6 pg (28.0-33.3); Mean Corpuscular Volume 87.6 fL (83.0-100.0); Mean Platelet Volume 10.4 fL (9.4-12.4); Platelet Count 246 K/mcL (140-400); Red Blood Count 3.39 M/mcL (3.82-4.97); Red Cell Distribution Width 13.7 % (11.5-14.5); White Blood Count 10.9 K/mcL (4.3-11.1)
[2020-03-07 05:14] LABS: Hemoglobin 9.7 g/dL (11.5-15.4)
[2020-03-07] MEDS: 0.9 % Sodium Chloride 1,000 ML IVC SCH (05:28)
[2020-03-07] MEDS: *HR* Heparin 5,000 UNIT/ML VIAL SQ SCH ×3 (05:28→21:54)
[2020-03-07] MEDS: Ketorolac 15 MG/ML VIAL IVP SCH ×4 (05:29→23:54)
[2020-03-07] MEDS: BuPROPion XL (24 HR) 150 MG TABLET PO SCH (08:04)
[2020-03-07] MEDS: Famotidine 20 MG TABLET PO SCH ×2 (08:04→20:09)
[2020-03-07] MEDS: Gabapentin 300 MG CAPSULE PO SCH ×2 (08:04→20:10)
[2020-03-07] MEDS: hydrOXYzine pamoate 25 MG CAPSULE PO PRN ×2 (08:04→21:55)
[2020-03-07] MEDS: Aspirin Enteric Coated 81 MG Tablet PO SCH (08:05)
[2020-03-07] MEDS: Sennosides/Docusate Sodium TABLET PO SCH ×2 (08:05→20:09)
[2020-03-07] MEDS ORDERED: Furosemide 20 MG/2 ML VIAL IVP ONE (13:09)
[2020-03-07] MEDS: Melatonin 3 MG TABLET PO SCH (20:10)
[2020-03-08 02:00] LABS: Hematocrit 30.8 % (35.3-44.9); Hemoglobin 9.8 g/dL (11.5-15.4); Mean Corpuscular HGB Conc 31.8 g/dL (31.6-35.5); Mean Corpuscular Hemoglobin 27.5 pg (28.0-33.3); Mean Corpuscular Volume 86.5 fL (83.0-100.0); Mean Platelet Volume 10.8 fL (9.4-12.4); Platelet Count 258 K/mcL (140-400); Red Blood Count 3.56 M/mcL (3.82-4.97); Red Cell Distribution Width 14.2 % (11.5-14.5); White Blood Count 12.9 K/mcL (4.3-11.1)
[2020-03-08 02:18] LABS: BUN/Creatinine Ratio 22 (6-26); Blood Urea Nitrogen 15 mg/dL (8-23); Calcium 8.3 mg/dL (8.6-10.3); Carbon Dioxide 20 mEq/L (23-29); Chloride 104 mEq/L (98-107); Glucose 121 mg/dL (70-105); Osmolality,Calculated 278 (280-300); Potassium 3.8 mEq/L (3.5-5.1); Sodium 133 mEq/L (136-145); eGFR For African Americans > 60 (> 60); eGFR For Non-African Americans > 60 (> 60)
[2020-03-08] MEDS: Ipratropium/Albuterol Neb 3 ML IH SCH ×6 (03:29→23:48)
[2020-03-08] MEDS: *HR* Heparin 5,000 UNIT/ML VIAL SQ SCH ×3 (05:42→22:49)
[2020-03-08] MEDS: Ketorolac 15 MG/ML VIAL IVP SCH ×3 (05:43→17:43)
[2020-03-08] MEDS: Aspirin Enteric Coated 81 MG Tablet PO SCH (08:36)
[2020-03-08] MEDS: Gabapentin 300 MG CAPSULE PO SCH ×2 (08:36→20:18)
[2020-03-08] MEDS: Famotidine 20 MG TABLET PO SCH ×2 (08:36→20:18)
[2020-03-08] MEDS: Sennosides/Docusate Sodium TABLET PO SCH ×2 (08:36→20:17)
[2020-03-08] MEDS: BuPROPion XL (24 HR) 150 MG TABLET PO SCH (08:36)
[2020-03-08] MEDS: *HR* HYDROcodone/Acet 5/325 mg TABLET PO PRN (08:43)
[2020-03-08] MEDS: Metoprolol XL (24 HR) Succ 25 MG TAB.ER.24H PO SCH (11:09)
[2020-03-08] MEDS: hydrOXYzine pamoate 25 MG CAPSULE PO PRN (17:54)
[2020-03-08] MEDS: Melatonin 3 MG TABLET PO SCH (20:18)
[2020-03-09] MEDS: Ketorolac 15 MG/ML VIAL IVP SCH ×5 (00:05→23:46)
[2020-03-09] MEDS: Ipratropium/Albuterol Neb 3 ML IH SCH ×5 (03:34→20:24)
[2020-03-09 05:29] LABS: Hematocrit 33.2 % (35.3-44.9); Hemoglobin 10.7 g/dL (11.5-15.4); Mean Corpuscular HGB Conc 32.2 g/dL (31.6-35.5); Mean Corpuscular Hemoglobin 28.2 pg (28.0-33.3); Mean Corpuscular Volume 87.6 fL (83.0-100.0); Mean Platelet Volume 10.6 fL (9.4-12.4); Platelet Count 293 K/mcL (140-400); Red Blood Count 3.79 M/mcL (3.82-4.97); Red Cell Distribution Width 14.5 % (11.5-14.5); White Blood Count 13.8 K/mcL (4.3-11.1)
[2020-03-09 05:44] LABS: BUN/Creatinine Ratio 29 (6-26); Blood Urea Nitrogen 15 mg/dL (8-23); Calcium 8.9 mg/dL (8.6-10.3); Carbon Dioxide 24 mEq/L (23-29); Chloride 101 mEq/L (98-107); Glucose 105 mg/dL (70-105); Magnesium 1.9 mg/dL (1.6-2.6); Osmolality,Calculated 273 (280-300); Potassium 4.6 mEq/L (3.5-5.1); Sodium 131 mEq/L (136-145); eGFR For African Americans > 60 (> 60); eGFR For Non-African Americans > 60 (> 60)
[2020-03-09] MEDS: *HR* Heparin 5,000 UNIT/ML VIAL SQ SCH ×3 (05:48→20:55)
[2020-03-09] MEDS: BuPROPion XL (24 HR) 150 MG TABLET PO SCH (08:40)
[2020-03-09] MEDS: Sennosides/Docusate Sodium TABLET PO SCH ×2 (08:40→20:54)
[2020-03-09] MEDS: Famotidine 20 MG TABLET PO SCH ×2 (08:40→20:54)
[2020-03-09] MEDS: Metoprolol XL (24 HR) Succ 25 MG TAB.ER.24H PO SCH (08:40)
[2020-03-09] MEDS: Aspirin Enteric Coated 81 MG Tablet PO SCH (08:40)
[2020-03-09] MEDS: Gabapentin 300 MG CAPSULE PO SCH ×2 (08:40→20:53)
[2020-03-09] MEDS: *HR* HYDROcodone/Acet 5/325 mg TABLET PO PRN (10:13)
[2020-03-09] MEDS: Amoxicillin/Clavulanate 500 MG TABLET PO SCH ×2 (14:21→20:53)
[2020-03-09] MEDS: Melatonin 3 MG TABLET PO SCH (20:53)
[2020-03-10] MEDS: Ipratropium/Albuterol Neb 3 ML IH SCH ×6 (00:07→19:40)
[2020-03-10] MEDS: *HR* HYDROcodone/Acet 5/325 mg TABLET PO PRN ×3 (03:05→22:26)
[2020-03-10 03:22] LABS: Hematocrit 30.7 % (35.3-44.9); Hemoglobin 9.7 g/dL (11.5-15.4); Mean Corpuscular HGB Conc 31.6 g/dL (31.6-35.5); Mean Corpuscular Hemoglobin 27.7 pg (28.0-33.3); Mean Corpuscular Volume 87.7 fL (83.0-100.0); Mean Platelet Volume 10.9 fL (9.4-12.4); Platelet Count 287 K/mcL (140-400); Red Cell Distribution Width 14.4 % (11.5-14.5); White Blood Count 16.3 K/mcL (4.3-11.1)
[2020-03-10 03:45] LABS: BUN/Creatinine Ratio 34 (6-26); Blood Urea Nitrogen 19 mg/dL (8-23); Calcium 8.5 mg/dL (8.6-10.3); Carbon Dioxide 19 mEq/L (23-29); Chloride 98 mEq/L (98-107); Glucose 121 mg/dL (70-105); Magnesium 1.9 mg/dL (1.6-2.6); Osmolality,Calculated 266 (280-300); Potassium 4.5 mEq/L (3.5-5.1); Sodium 126 mEq/L (136-145); eGFR For African Americans > 60 (> 60); eGFR For Non-African Americans > 60 (> 60)
[2020-03-10] MEDS: Ketorolac 15 MG/ML VIAL IVP SCH ×3 (05:28→17:15)
[2020-03-10] MEDS: *HR* Heparin 5,000 UNIT/ML VIAL SQ SCH ×3 (05:28→22:26)
[2020-03-10] MEDS: Amoxicillin/Clavulanate 500 MG TABLET PO SCH ×3 (07:44→20:04)
[2020-03-10] MEDS: BuPROPion XL (24 HR) 150 MG TABLET PO SCH (07:44)
[2020-03-10] MEDS: Aspirin Enteric Coated 81 MG Tablet PO SCH (07:44)
[2020-03-10] MEDS: Sennosides/Docusate Sodium TABLET PO SCH ×2 (07:44→20:05)
[2020-03-10] MEDS: Famotidine 20 MG TABLET PO SCH ×2 (07:44→20:05)
[2020-03-10] MEDS: Gabapentin 300 MG CAPSULE PO SCH ×2 (07:44→20:05)
[2020-03-10] MEDS: Metoprolol XL (24 HR) Succ 25 MG TAB.ER.24H PO SCH (07:44)
[2020-03-10] MEDS: polyethylene glycoL 3350 17 GM POWD.PACK PO SCH (11:18)
[2020-03-10] MEDS: Nicotine 21 MG PATCH.TD24 TD SCH (20:03)
[2020-03-10] MEDS: Melatonin 3 MG TABLET PO SCH (22:26)
[2020-03-11] MEDS: Ipratropium/Albuterol Neb 3 ML IH SCH ×6 (00:09→20:21)
[2020-03-11] MEDS: Ketorolac 15 MG/ML VIAL IVP SCH ×4 (00:45→18:04)
[2020-03-11 03:04] LABS: Hematocrit 29.4 % (35.3-44.9); Hemoglobin 9.6 g/dL (11.5-15.4); Mean Corpuscular HGB Conc 32.7 g/dL (31.6-35.5); Mean Corpuscular Hemoglobin 28.5 pg (28.0-33.3); Mean Corpuscular Volume 87.2 fL (83.0-100.0); Mean Platelet Volume 10.4 fL (9.4-12.4); Platelet Count 286 K/mcL (140-400); Red Blood Count 3.37 M/mcL (3.82-4.97); Red Cell Distribution Width 14.4 % (11.5-14.5); White Blood Count 11.1 K/mcL (4.3-11.1)
[2020-03-11 03:21] LABS: BUN/Creatinine Ratio 27 (6-26); Blood Urea Nitrogen 17 mg/dL (8-23); Calcium 8.5 mg/dL (8.6-10.3); Carbon Dioxide 20 mEq/L (23-29); Chloride 97 mEq/L (98-107); Glucose 112 mg/dL (70-105); Osmolality,Calculated 260 (280-300); Potassium 4.6 mEq/L (3.5-5.1); Sodium 124 mEq/L (136-145); eGFR For African Americans > 60 (> 60); eGFR For Non-African Americans > 60 (> 60)
[2020-03-11] MEDS: *HR* Heparin 5,000 UNIT/ML VIAL SQ SCH ×3 (06:15→22:23)
[2020-03-11] MEDS: Gabapentin 300 MG CAPSULE PO SCH ×2 (08:13→19:59)
[2020-03-11] MEDS: polyethylene glycoL 3350 17 GM POWD.PACK PO SCH (08:13)
[2020-03-11] MEDS: Metoprolol XL (24 HR) Succ 25 MG TAB.ER.24H PO SCH (08:14)
[2020-03-11] MEDS: Aspirin Enteric Coated 81 MG Tablet PO SCH (08:14)
[2020-03-11] MEDS: Amoxicillin/Clavulanate 500 MG TABLET PO SCH ×3 (08:14→19:59)
[2020-03-11] MEDS: Famotidine 20 MG TABLET PO SCH ×2 (08:14→19:58)
[2020-03-11] MEDS: BuPROPion XL (24 HR) 150 MG TABLET PO SCH (08:14)
[2020-03-11] MEDS: Nicotine 21 MG PATCH.TD24 TD SCH (08:14)
[2020-03-11] MEDS: Sennosides/Docusate Sodium TABLET PO SCH ×2 (08:14→19:58)
[2020-03-11] MEDS: Bisacodyl 10 MG RECTAL SUPPOSITORY RC ONE (17:42)
[2020-03-11] MEDS: Melatonin 3 MG TABLET PO SCH (22:23)
[2020-03-12] MEDS: Ipratropium/Albuterol Neb 3 ML IH SCH ×7 (00:11→23:32)
[2020-03-12 02:22] LABS: Hematocrit 30.7 % (35.3-44.9); Hemoglobin 9.8 g/dL (11.5-15.4); Mean Corpuscular HGB Conc 31.9 g/dL (31.6-35.5); Mean Corpuscular Hemoglobin 27.4 pg (28.0-33.3); Mean Corpuscular Volume 85.8 fL (83.0-100.0); Mean Platelet Volume 10.2 fL (9.4-12.4); Platelet Count 309 K/mcL (140-400); Red Blood Count 3.58 M/mcL (3.82-4.97); Red Cell Distribution Width 14.3 % (11.5-14.5); White Blood Count 10.8 K/mcL (4.3-11.1)
[2020-03-12] MEDS: *HR* HYDROcodone/Acet 5/325 mg TABLET PO PRN ×3 (02:31→21:26)
[2020-03-12 02:45] LABS: BUN/Creatinine Ratio 29 (6-26); Blood Urea Nitrogen 17 mg/dL (8-23); Calcium 8.9 mg/dL (8.6-10.3); Carbon Dioxide 21 mEq/L (23-29); Chloride 96 mEq/L (98-107); Glucose 111 mg/dL (70-105); Osmolality,Calculated 260 (280-300); Potassium 4.7 mEq/L (3.5-5.1); Sodium 124 mEq/L (136-145); eGFR For African Americans > 60 (> 60); eGFR For Non-African Americans > 60 (> 60)
[2020-03-12] MEDS: *HR* Heparin 5,000 UNIT/ML VIAL SQ SCH ×3 (05:58→21:27)
[2020-03-12] MEDS: Gabapentin 300 MG CAPSULE PO SCH ×2 (07:32→21:27)
[2020-03-12] MEDS: Aspirin Enteric Coated 81 MG Tablet PO SCH (07:32)
[2020-03-12] MEDS: BuPROPion XL (24 HR) 150 MG TABLET PO SCH (07:32)
[2020-03-12] MEDS: Famotidine 20 MG TABLET PO SCH ×2 (07:32→21:27)
[2020-03-12] MEDS: Sennosides/Docusate Sodium TABLET PO SCH ×2 (07:32→21:27)
[2020-03-12] MEDS: Amoxicillin/Clavulanate 500 MG TABLET PO SCH ×3 (07:32→21:27)
[2020-03-12] MEDS: Metoprolol XL (24 HR) Succ 25 MG TAB.ER.24H PO SCH (07:32)
[2020-03-12] MEDS: Nicotine 21 MG PATCH.TD24 TD SCH (07:33)
[2020-03-12] MEDS: polyethylene glycoL 3350 17 GM POWD.PACK PO SCH (07:33)
[2020-03-12] MEDS: Melatonin 3 MG TABLET PO SCH (21:27)
[2020-03-13] MEDS: Ipratropium/Albuterol Neb 3 ML IH SCH ×3 (03:36→11:36)
[2020-03-13 06:10] LABS: Hematocrit 31.5 % (35.3-44.9); Mean Corpuscular HGB Conc 31.7 g/dL (31.6-35.5); Mean Corpuscular Hemoglobin 27.6 pg (28.0-33.3); Mean Platelet Volume 10.2 fL (9.4-12.4); Platelet Count 356 K/mcL (140-400); Red Blood Count 3.62 M/mcL (3.82-4.97); Red Cell Distribution Width 14.4 % (11.5-14.5); White Blood Count 7.8 K/mcL (4.3-11.1)
[2020-03-13] MEDS: *HR* Heparin 5,000 UNIT/ML VIAL SQ SCH (06:23)
[2020-03-13 06:28] LABS: BUN/Creatinine Ratio 23 (6-26); Blood Urea Nitrogen 14 mg/dL (8-23); Calcium 8.8 mg/dL (8.6-10.3); Carbon Dioxide 21 mEq/L (23-29); Chloride 100 mEq/L (98-107); Glucose 95 mg/dL (70-105); Osmolality,Calculated 268 (280-300); Potassium 4.2 mEq/L (3.5-5.1); Sodium 129 mEq/L (136-145); eGFR For African Americans > 60 (> 60); eGFR For Non-African Americans > 60 (> 60)
[2020-03-13] MEDS: Gabapentin 300 MG CAPSULE PO SCH (09:32)
[2020-03-13] MEDS: Metoprolol XL (24 HR) Succ 25 MG TAB.ER.24H PO SCH (09:32)
[2020-03-13] MEDS: Aspirin Enteric Coated 81 MG Tablet PO SCH (09:32)
[2020-03-13] MEDS: Famotidine 20 MG TABLET PO SCH (09:32)
[2020-03-13] MEDS: Nicotine 21 MG PATCH.TD24 TD SCH (09:32)
[2020-03-13] MEDS: Amoxicillin/Clavulanate 500 MG TABLET PO SCH (09:32)
[2020-03-13] MEDS: Sennosides/Docusate Sodium TABLET PO SCH (09:32)
[2020-03-13] MEDS: *HR* HYDROcodone/Acet 5/325 mg TABLET PO PRN (09:32)
[2020-03-13] MEDS: BuPROPion XL (24 HR) 150 MG TABLET PO SCH (09:32)
[2020-03-13] MEDS: polyethylene glycoL 3350 17 GM POWD.PACK PO SCH (09:33)
[2020-03-13 11:21] VITALS: BP 145/62
== END 2020-03-13 14:40 | disposition home or self-care (01) | DRG 163 ==
LOC: SAMDAY 11:31 → 2NNU 16:40
PROVIDERS: ADMIT Thoracic Surgery (Cardiothoracic Vascular Surgery); ATTEND Thoracic Surgery (Cardiothoracic Vascular Surgery)

== ENCOUNTER 2020-06-05 13:07 | Inpatient (IN) ==
[2020-06-05] MEDS ORDERED: Isovue-370 500 ML BOTTLE IVP ONE (14:32)
[2020-06-05 14:38] LABS: Basophils % 0.4 %; Nucleated Red Blood Cells 0.4 /100 WBC (0)
[2020-06-05 14:39] LABS: Eosinophils # 0.1 K/mcL (0.0-0.6); Eosinophils % 1.8 %; Hematocrit 17.9 % (35.3-44.9); Immature Granulocytes % 0.3 % (0-4); Lymphocytes # 0.8 K/mcL (0.6-4.6); Lymphocytes % 11.5 %; Mean Corpuscular HGB Conc 27.4 g/dL (31.6-35.5); Mean Corpuscular Hemoglobin 19.1 pg (28.0-33.3); Mean Corpuscular Volume 69.9 fL (83.0-100.0); Mean Platelet Volume 9.9 fL (9.4-12.4); Monocytes # 0.5 K/mcL (0.0-1.3); Monocytes % 7.5 %; Platelet Count 352 K/mcL (140-400); Red Blood Count 2.56 M/mcL (3.82-4.97); Red Cell Distribution Width 16.7 % (11.5-14.5); Segmented Neutrophils % 78.5 %; White Blood Count 6.7 K/mcL (4.3-11.1)
[2020-06-05 14:50] LABS: Neutrophils # 5.3 K/mcL (1.6-8.9)
[2020-06-05 14:53] LABS: Hemoglobin 4.9 g/dL (11.5-15.4)
[2020-06-05 15:04] LABS: BUN/Creatinine Ratio 13 (6-26); Blood Urea Nitrogen 7 mg/dL (8-23); Calcium 8.6 mg/dL (8.6-10.3); Carbon Dioxide 21 mEq/L (23-29); Chloride 103 mEq/L (98-107); Glucose 105 mg/dL (70-105); Osmolality,Calculated 274 (280-300); Sodium 133 mEq/L (136-145); Troponin I < 0.03 ng/mL (< 0.04); eGFR For African Americans > 60 (> 60); eGFR For Non-African Americans > 60 (> 60)
[2020-06-05 15:13] LABS: Hypochromasia Present (Not Present)
[2020-06-05 15:14] LABS: Microcytosis Present (Not Present)
[2020-06-05 15:16] LABS: Anisocytosis 1+ (Not Present); Platelet Estimate Normal (Normal)
[2020-06-05 15:45] LABS: Hematocrit 18.9 % (35.3-44.9)
[2020-06-05 16:11] LABS: Hemoglobin 5.1 g/dL (11.5-15.4)
[2020-06-05] MEDS ORDERED: Naloxone 0.4 MG/ML INJ IVP PRN (17:04)
[2020-06-05] MEDS ORDERED: Acetaminophen 325 MG TABLET PO PRN (17:06)
[2020-06-05] MEDS ORDERED: Ipratropium/Albuterol Neb 3 ML IH PRN (17:18)
[2020-06-05] MEDS: Pantoprazole 40 MG VIAL IVP SCH (17:46)
[2020-06-05] MEDS ORDERED: Furosemide 40 MG/4 ML VIAL IVP ONE (19:40)
[2020-06-05] MEDS ORDERED: 0.9 % Sodium Chloride 250 ML ONE (20:15)
[2020-06-05] MEDS: Ipratropium/Albuterol Neb 3 ML IH SCH (22:41)
[2020-06-05] MEDS: Budesonide/Formoterol 80/4.5 1 PUFF INH IH SCH (22:42)
[2020-06-06 01:25] LABS: Basophils % 0.5 %; Eosinophils # 0.1 K/mcL (0.0-0.6); Eosinophils % 1.8 %; Hematocrit 28.1 % (35.3-44.9); Immature Granulocytes % 0.3 % (0-4); Lymphocytes % 13.2 %; Mean Corpuscular HGB Conc 29.9 g/dL (31.6-35.5); Mean Corpuscular Hemoglobin 21.8 pg (28.0-33.3); Mean Platelet Volume 9.6 fL (9.4-12.4); Monocytes # 0.6 K/mcL (0.0-1.3); Neutrophils # 5.9 K/mcL (1.6-8.9); Nucleated Red Blood Cells 0.4 /100 WBC (0); Platelet Count 330 K/mcL (140-400); Red Blood Count 3.85 M/mcL (3.82-4.97); Red Cell Distribution Width 19.9 % (11.5-14.5); Segmented Neutrophils % 76.2 %; White Blood Count 7.8 K/mcL (4.3-11.1)
[2020-06-06 01:29] LABS: Hemoglobin 8.4 g/dL (11.5-15.4)
[2020-06-06 01:45] LABS: INR 1.1; Prothrombin Time 12.7 Seconds (9.4-12.1)
[2020-06-06 01:46] LABS: Alanine Aminotransferase 9 Units/L (7-52); Albumin 3.8 g/dL (3.5-5.7); Albumin/Globulin Ratio 1.2 (1.1-2.2); Alkaline Phosphatase 108 Units/L (34-104); Aspartate Amino Transferase 16 Units/L (13-39); BUN/Creatinine Ratio 12 (6-26); Bilirubin,Total 1.3 mg/dL (0.3-1.0); Blood Urea Nitrogen 6 mg/dL (8-23); Calcium 8.9 mg/dL (8.6-10.3); Carbon Dioxide 21 mEq/L (23-29); Chloride 101 mEq/L (98-107); Globulin 3.2 g/dL (2.4-3.5); Glucose 102 mg/dL (70-105); Magnesium 1.9 mg/dL (1.6-2.6); Osmolality,Calculated 274 (280-300); Phosphorous 3.2 mg/dL (2.7-4.5); Potassium 3.5 mEq/L (3.5-5.1); Sodium 133 mEq/L (136-145); eGFR For African Americans > 60 (> 60); eGFR For Non-African Americans > 60 (> 60)
[2020-06-06 01:47] LABS: Activated Partial Thrombo Time 44.6 Seconds (26.0-36.0)
[2020-06-06 01:53] LABS: % Iron Saturation 42 % (15-50); Iron 196 mcg/dL (50-170); Lactate Dehydrogenase 211 Units/L (140-271); Transferrin 331 mg/dL (203-362)
[2020-06-06 02:04] LABS: Ferritin 14 ng/mL (10-120)
[2020-06-06 02:10] LABS: Folate 15.1 ng/mL (3.0-16.0)
[2020-06-06] MEDS: Ipratropium/Albuterol Neb 3 ML IH SCH ×4 (03:49→21:35)
[2020-06-06] MEDS: Pantoprazole 40 MG VIAL IVP SCH ×2 (05:13→17:34)
[2020-06-06] MEDS: Budesonide/Formoterol 80/4.5 1 PUFF INH IH SCH ×2 (07:41→21:36)
[2020-06-06] MEDS: Nicotine 14 MG PATCH.TD24 TD SCH (08:26)
[2020-06-06 11:03] LABS: Adenovirus Not Detected (Not Detect); Bordetella Pertussis Not Detected (Not Detect); Chlamydophila pneumoniae Not Detected (Not Detect); Coronavirus 229E Not Detected (Not Detect); Coronavirus HKU1 Not Detected (Not Detect); Coronavirus NL63 Not Detected (Not Detect); Coronavirus OC43 Not Detected (Not Detect); Human Metapneumovirus Not Detected (Not Detect); Human Rhinovirus/Enterovirus Not Detected (Not Detect); Influenza A Subtype 2009 H1 Not Detected (Not Detect); Influenza B Not Detected (Not Detect); Mycoplasma pneumoniae Not Detected (Not Detect); Parainfluenza Virus 1 Not Detected (Not Detect); Parainfluenza Virus 2 Not Detected (Not Detect); Parainfluenza Virus 3 Not Detected (Not Detect); Parainfluenza Virus 4 Not Detected (Not Detect); Respiratory Syncytial Virus Not Detected (Not Detect); SARS-CoV-2 Not Detected (Not Detect)
[2020-06-06] MEDS ORDERED: Melatonin 3 MG TABLET PO ONE (21:00)
[2020-06-07] MEDS: Ipratropium/Albuterol Neb 3 ML IH SCH ×2 (04:11→10:53)
[2020-06-07] MEDS: Pantoprazole 40 MG VIAL IVP SCH (05:13)
[2020-06-07 06:08] LABS: Hematocrit 28.2 % (35.3-44.9); Hemoglobin 8.4 g/dL (11.5-15.4); Mean Corpuscular HGB Conc 29.8 g/dL (31.6-35.5); Mean Corpuscular Hemoglobin 21.9 pg (28.0-33.3); Mean Corpuscular Volume 73.6 fL (83.0-100.0); Mean Platelet Volume 9.5 fL (9.4-12.4); Platelet Count 341 K/mcL (140-400); Red Blood Count 3.83 M/mcL (3.82-4.97); Red Cell Distribution Width 19.5 % (11.5-14.5); White Blood Count 7.9 K/mcL (4.3-11.1)
[2020-06-07 06:26] LABS: BUN/Creatinine Ratio 12 (6-26); Blood Urea Nitrogen 8 mg/dL (8-23); Calcium 8.8 mg/dL (8.6-10.3); Carbon Dioxide 22 mEq/L (23-29); Chloride 103 mEq/L (98-107); Glucose 117 mg/dL (70-105); Osmolality,Calculated 275 (280-300); Potassium 3.7 mEq/L (3.5-5.1); Sodium 133 mEq/L (136-145); eGFR For African Americans > 60 (> 60); eGFR For Non-African Americans > 60 (> 60)
[2020-06-07 08:01] VITALS: BP 154/61
[2020-06-07] MEDS: Nicotine 14 MG PATCH.TD24 TD SCH (09:36)
[2020-06-07] MEDS: Budesonide/Formoterol 80/4.5 1 PUFF INH IH SCH (10:53)
== END 2020-06-07 11:01 | disposition home or self-care (01) | DRG 812 ==
LOC: EMEROOARM 13:07 → 2ANU 13:07 → SUATTDRO 18:43
PROVIDERS: ADMIT Family Medicine; ATTEND Internal Medicine

== ENCOUNTER 2021-10-03 05:58 | Observation (INO) ==
[2021-10-03] MEDS ORDERED: tiZANidine 4 MG TABLET PO ONE (06:30)
[2021-10-03] MEDS ORDERED: *HR* OxyCODONE Immed Rel 5 MG TABLET PO ONE (06:30)
[2021-10-03] MEDS ORDERED: Acetaminophen IV 1,000 MG/100 ML BAG IVPB ONE (06:30)
[2021-10-03] MEDS ORDERED: Famotidine 20 MG/2 ML VIAL IVP ONE (06:30)
[2021-10-03] MEDS ORDERED: *HR* OxyCODONE Immed Rel 5 MG TABLET PO PRN (06:40)
[2021-10-03] MEDS ORDERED: Albuterol 2.5 MG/3 ML NEBULIZER IH PRN (06:40)
[2021-10-03] MEDS ORDERED: Ondansetron 4 MG/2 ML VIAL IVP PRN ×2 (06:40→18:19)
[2021-10-03] MEDS ORDERED: CeFAZolin Syr 2,000MG/20 ML 2,000 MG/20 ML SYRINGE IVPB ONE (06:45)
[2021-10-03] MEDS ORDERED: Ringers Solution, Lactated 1,000 ML IVC SCH ×2 (06:45→18:19)
[2021-10-03] MEDS ORDERED: *HR* Midazolam HCl 2 MG/2 ML VIAL ONE (07:12)
[2021-10-03] MEDS ORDERED: *HR* FentaNYL (PF) 100 MCG/2 ML VIAL ONE (07:12)
[2021-10-03] MEDS ORDERED: *HR* Propofol 200 MG/20 ML VIAL IVP ONE (07:13)
[2021-10-03] MEDS ORDERED: Lidocaine -MPF 2% 2 ML VIAL ONE (07:13)
[2021-10-03] MEDS ORDERED: *HR* Remifentanil 2 MG VIAL IVP ONE (07:15)
[2021-10-03] MEDS ORDERED: Lidocaine -MPF 4% 5 ML AMPUL ONE (07:19)
[2021-10-03] MEDS ORDERED: *HR* Rocuronium Bromide 50 MG/5 ML VIAL ONE (07:19)
[2021-10-03] MEDS ORDERED: *HR* Phenylephrine 10 MG/ML VIAL ONE (07:20)
[2021-10-03] MEDS ORDERED: EPHEDrine 50 MG/ML VIAL ONE (07:22)
[2021-10-03] MEDS ORDERED: Lidocaine/EPI 1:100k 1% 50 ML VIAL ONE (07:25)
[2021-10-03] MEDS ORDERED: Vancomycin 1,000 MG VIAL ONE ×2 (07:27→12:05)
[2021-10-03] MEDS ORDERED: Polymyxin B Sulfate 500,000 UNIT, Sodium Chloride IRRigation 1,000 ML IR ONE (07:45)
[2021-10-03] MEDS ORDERED: Heparin 1,000 UNITS/500 mL 500 ML ONE (12:19)
[2021-10-03] MEDS: *HR* HYDROmorphone PF 0.5 MG/0.5 ML SYRINGE IVP PRN ×6 (16:51→17:19)
[2021-10-03] MEDS ORDERED: Naloxone 0.4 MG/ML INJ IVP PRN (18:19)
[2021-10-03] MEDS ORDERED: Acetaminophen 325 MG TABLET PO PRN (18:19)
[2021-10-03] MEDS ORDERED: *HR* HYDROcodone/Acet 5/325 mg TABLET PO PRN (18:19)
[2021-10-03] MEDS ORDERED: Ammonium Lactate 30 APPL/225 GM BOTTLE TP PRN (18:43)
[2021-10-03] MEDS ORDERED: Melatonin 3 MG TABLET PO PRN (18:44)
[2021-10-03] MEDS: *HR* OxyCODONE Immed Rel 5 MG TABLET PO PRN ×2 (19:42→23:58)
[2021-10-03] MEDS: Gabapentin 400 MG CAPSULE PO SCH (19:42)
[2021-10-03] MEDS: CeFAZolin 2 GM/120 ML BAG IVPB SCH (20:50)
[2021-10-04] MEDS: CeFAZolin 2 GM/120 ML BAG IVPB SCH (06:00)
[2021-10-04] MEDS: Aspirin Enteric Coated 81 MG Tablet PO SCH (08:13)
[2021-10-04] MEDS: Cholecalciferol (D-3) 1,000 UNIT (25MCG) TABLET PO SCH (08:13)
[2021-10-04] MEDS: *HR* OxyCODONE Immed Rel 5 MG TABLET PO PRN ×3 (08:13→22:00)
[2021-10-04] MEDS: Celecoxib 100 MG CAPSULE PO SCH (08:14)
[2021-10-04] MEDS: Pyridoxine (B-6) 50 MG TABLET PO SCH (08:14)
[2021-10-04] MEDS: Gabapentin 400 MG CAPSULE PO SCH ×3 (08:14→19:56)
[2021-10-04] MEDS: BuPROPion XL (24 HR) 150 MG TABLET PO SCH (08:15)
[2021-10-04] MEDS ORDERED: BIOTIN 5000 MCG SL SCH (09:00)
[2021-10-05 06:55] VITALS: O2SAT 92
[2021-10-05] MEDS: BuPROPion XL (24 HR) 150 MG TABLET PO SCH (08:06)
[2021-10-05] MEDS: Cholecalciferol (D-3) 1,000 UNIT (25MCG) TABLET PO SCH (08:06)
[2021-10-05] MEDS: Pyridoxine (B-6) 50 MG TABLET PO SCH (08:06)
[2021-10-05] MEDS: Aspirin Enteric Coated 81 MG Tablet PO SCH (08:06)
[2021-10-05] MEDS: Gabapentin 400 MG CAPSULE PO SCH (08:07)
[2021-10-05] MEDS: Celecoxib 100 MG CAPSULE PO SCH (08:07)
[2021-10-05 10:16] LABS: Basophils % 0.5 %; Eosinophils # 0.1 K/mcL (0.0-0.6); Eosinophils % 0.9 %; Hematocrit 27.8 % (35.3-44.9); Hemoglobin 9.1 g/dL (11.5-15.4); Immature Granulocytes % 0.2 % (0-4); Lymphocytes % 11.2 %; Mean Corpuscular HGB Conc 32.7 g/dL (31.6-35.5); Mean Corpuscular Hemoglobin 28.2 pg (28.0-33.3); Mean Corpuscular Volume 86.1 fL (83.0-100.0); Mean Platelet Volume 10.7 fL (9.4-12.4); Monocytes # 0.8 K/mcL (0.0-1.3); Neutrophils # 6.7 K/mcL (1.6-8.9); Platelet Count 206 K/mcL (140-400); Red Blood Count 3.23 M/mcL (3.82-4.97); Red Cell Distribution Width 15.5 % (11.5-14.5); Segmented Neutrophils % 78.2 %; White Blood Count 8.5 K/mcL (4.3-11.1)
[2021-10-05 11:03] VITALS: BP 120/50; PULSE 86; TEMP 98
== END 2021-10-05 13:15 | disposition home or self-care (01) ==
LOC: 4WAOSI 05:58 → SDCAOSI 05:58 → 4WAOSI 17:48
PROVIDERS: ADMIT Orthopaedic Surgery Orthopaedic Surgery of the Spine; ATTEND Orthopaedic Surgery Orthopaedic Surgery of the Spine

== ENCOUNTER 2021-10-28 14:10 | Inpatient (IN) ==
[2021-10-28] MEDS ORDERED: Naloxone 0.4 MG/ML INJ IVP PRN (16:20)
[2021-10-28] MEDS ORDERED: *HR* OxyCODONE Immed Rel 5 MG TABLET PO PRN (16:20)
[2021-10-28] MEDS ORDERED: Ondansetron ODT 4 MG TAB.RAPDIS SL PRN (16:20)
[2021-10-28] MEDS: Acetaminophen 325 MG TABLET PO PRN (20:55)
[2021-10-29] MEDS ORDERED: Piperacillin/Tazobactam 3.375 GM in 0.9 % Sodium Chloride Mini Bag 100 ML IVPB SCH
[2021-10-29 04:49] LABS: Basophils # 0.1 K/mcL (0.0-0.2); Basophils % 0.8 %; Eosinophils # 0.2 K/mcL (0.0-0.6); Eosinophils % 2.1 %; Hematocrit 29.3 % (35.3-44.9); Immature Granulocytes % 0.5 % (0-4); Lymphocytes # 0.8 K/mcL (0.6-4.6); Lymphocytes % 8.5 %; Mean Corpuscular HGB Conc 30.7 g/dL (31.6-35.5); Mean Corpuscular Hemoglobin 25.6 pg (28.0-33.3); Mean Corpuscular Volume 83.5 fL (83.0-100.0); Mean Platelet Volume 10.4 fL (9.4-12.4); Monocytes # 0.6 K/mcL (0.0-1.3); Neutrophils # 7.2 K/mcL (1.6-8.9); Platelet Count 330 K/mcL (140-400); Red Blood Count 3.51 M/mcL (3.82-4.97); Red Cell Distribution Width 15.6 % (11.5-14.5); Segmented Neutrophils % 81.1 %; White Blood Count 8.8 K/mcL (4.3-11.1)
[2021-10-29 05:11] LABS: BUN/Creatinine Ratio 9 (6-26); Blood Urea Nitrogen 6 mg/dL (8-23); Calcium 8.7 mg/dL (8.6-10.3); Carbon Dioxide 20 mEq/L (23-29); Chloride 104 mEq/L (98-107); Glucose 98 mg/dL (70-105); Osmolality,Calculated 276 (280-300); Potassium 3.7 mEq/L (3.5-5.1); Sodium 134 mEq/L (136-145); eGFR For African Americans > 60 (> 60); eGFR For Non-African Americans > 60 (> 60)
[2021-10-29] MEDS: Gabapentin 400 MG CAPSULE PO SCH ×2 (17:12→19:52)
[2021-10-29] MEDS: BuPROPion XL (24 HR) 150 MG TABLET PO SCH (17:14)
[2021-10-29] MEDS: cefTRIAXone 1,000 MG in 0.9 % Sodium Chloride 10 ML IVPB SCH (17:14)
[2021-10-30] MEDS: cefTRIAXone 1,000 MG in 0.9 % Sodium Chloride 10 ML IVPB SCH (08:21)
[2021-10-30] MEDS: BuPROPion XL (24 HR) 150 MG TABLET PO SCH (08:22)
[2021-10-30] MEDS: Gabapentin 400 MG CAPSULE PO SCH ×2 (08:22→14:27)
[2021-10-30] MEDS: Cholecalciferol (D-3) 1,000 UNIT (25MCG) TABLET PO SCH (08:23)
[2021-10-30 08:36] LABS: Hemoglobin 9.4 g/dL (11.5-15.4); Mean Corpuscular HGB Conc 31.3 g/dL (31.6-35.5); Mean Corpuscular Hemoglobin 25.4 pg (28.0-33.3); Mean Corpuscular Volume 81.1 fL (83.0-100.0); Mean Platelet Volume 10.2 fL (9.4-12.4); Platelet Count 363 K/mcL (140-400); Red Cell Distribution Width 15.3 % (11.5-14.5); White Blood Count 7.4 K/mcL (4.3-11.1)
[2021-10-30 08:59] LABS: BUN/Creatinine Ratio 12 (6-26); Blood Urea Nitrogen 7 mg/dL (8-23); Calcium 8.9 mg/dL (8.6-10.3); Carbon Dioxide 20 mEq/L (23-29); Chloride 105 mEq/L (98-107); Glucose 89 mg/dL (70-105); Osmolality,Calculated 275 (280-300); Potassium 3.8 mEq/L (3.5-5.1); Sodium 134 mEq/L (136-145); eGFR For African Americans > 60 (> 60); eGFR For Non-African Americans > 60 (> 60)
[2021-10-30] MEDS ORDERED: Pyridoxine (B-6) 50 MG TABLET PO SCH (09:00)
[2021-10-30] MEDS ORDERED: BIOTIN 5000 MCG SL SCH (09:00)
[2021-10-30] MEDS ORDERED: Aspirin Enteric Coated 81 MG Tablet PO SCH (09:00)
[2021-10-30] MEDS: Acetaminophen 325 MG TABLET PO PRN (15:32)
[2021-10-30] MEDS ORDERED: Ringers Solution, Lactated 1,000 ML IVC SCH (17:15)
[2021-10-30] MEDS ORDERED: Ondansetron 4 MG/2 ML VIAL IVP PRN ×2 (17:18→21:03)
[2021-10-30] MEDS ORDERED: *HR* FentaNYL (PF) 100 MCG/2 ML VIAL IVP PRN (17:18)
[2021-10-30] MEDS ORDERED: *HR* OxyCODONE Immed Rel 5 MG TABLET PO PRN (17:18)
[2021-10-30] MEDS ORDERED: *HR* HYDROmorphone PF 0.5 MG/0.5 ML SYRINGE IVP PRN (17:18)
[2021-10-30] MEDS ORDERED: *HR* Midazolam HCl 2 MG/2 ML VIAL ONE (17:31)
[2021-10-30] MEDS ORDERED: *HR* FentaNYL (PF) 100 MCG/2 ML VIAL ONE ×2 (17:31→19:39)
[2021-10-30] MEDS ORDERED: *HR* Propofol 200 MG/20 ML VIAL IVP ONE (17:31)
[2021-10-30] MEDS ORDERED: Vancomycin 1,000 MG VIAL ONE (18:45)
[2021-10-30] MEDS ORDERED: *HR* Rocuronium Bromide 50 MG/5 ML VIAL ONE (19:12)
[2021-10-30] MEDS ORDERED: *HR* Succinylcholine 200 MG/10 ML VIAL IVP ONE (19:12)
[2021-10-30] MEDS ORDERED: Sugammadex Sodium 200 MG/2 ML VIAL IV ONE (19:40)
[2021-10-30] MEDS ORDERED: Acetaminophen 325 MG TABLET PO PRN (21:03)
[2021-10-30] MEDS ORDERED: Naloxone 0.4 MG/ML INJ IVP PRN (21:03)
[2021-10-30] MEDS: Sulfamethoxazole/Trimeth DS 1 EACH TABLET PO SCH (22:01)
[2021-10-31] MEDS: *HR* OxyCODONE Immed Rel 5 MG TABLET PO PRN ×3 (03:45→23:50)
[2021-10-31] MEDS: Sulfamethoxazole/Trimeth DS 1 EACH TABLET PO SCH (07:47)
[2021-10-31] MEDS: *HR* HYDROcodone/Acet 5/325 mg TABLET PO PRN ×2 (11:17→17:29)
[2021-10-31] MEDS ORDERED: *HR* Promethazine 25 MG/ML VIAL IM PRN (13:20)
[2021-10-31] MEDS: Cefepime HCl 2,000 MG in 0.9 % Sodium Chloride 20 ML IVP SCH ×2 (14:33→23:50)
[2021-10-31] MEDS: Gabapentin 400 MG CAPSULE PO SCH (20:36)
[2021-10-31] MEDS ORDERED: Melatonin 3 MG TABLET PO SCH (21:00)
[2021-11-01 05:16] LABS: Basophils # 0.1 K/mcL (0.0-0.2); Basophils % 1.1 %; Eosinophils # 0.2 K/mcL (0.0-0.6); Eosinophils % 3.1 %; Hematocrit 29.3 % (35.3-44.9); Hemoglobin 8.9 g/dL (11.5-15.4); Immature Granulocytes % 0.5 % (0-4); Lymphocytes # 1.2 K/mcL (0.6-4.6); Lymphocytes % 16.5 %; Mean Corpuscular HGB Conc 30.4 g/dL (31.6-35.5); Mean Corpuscular Hemoglobin 25.1 pg (28.0-33.3); Mean Corpuscular Volume 82.8 fL (83.0-100.0); Mean Platelet Volume 9.9 fL (9.4-12.4); Monocytes # 0.7 K/mcL (0.0-1.3); Neutrophils # 5.1 K/mcL (1.6-8.9); Platelet Count 349 K/mcL (140-400); Red Blood Count 3.54 M/mcL (3.82-4.97); Red Cell Distribution Width 15.2 % (11.5-14.5); Segmented Neutrophils % 69.8 %; White Blood Count 7.3 K/mcL (4.3-11.1)
[2021-11-01 05:38] LABS: BUN/Creatinine Ratio 11 (6-26); Blood Urea Nitrogen 9 mg/dL (8-23); Calcium 8.6 mg/dL (8.6-10.3); Carbon Dioxide 24 mEq/L (23-29); Chloride 106 mEq/L (98-107); Glucose 81 mg/dL (70-105); Osmolality,Calculated 280 (280-300); Potassium 4.1 mEq/L (3.5-5.1); Sodium 136 mEq/L (136-145); eGFR For African Americans > 60 (> 60); eGFR For Non-African Americans > 60 (> 60)
[2021-11-01] MEDS: Aspirin Enteric Coated 81 MG Tablet PO SCH (07:09)
[2021-11-01] MEDS: BuPROPion XL (24 HR) 150 MG TABLET PO SCH (07:41)
[2021-11-01] MEDS: Gabapentin 400 MG CAPSULE PO SCH ×3 (07:41→20:59)
[2021-11-01] MEDS: *HR* HYDROcodone/Acet 5/325 mg TABLET PO PRN ×2 (07:48→15:01)
[2021-11-01] MEDS: Cefepime HCl 2,000 MG in 0.9 % Sodium Chloride 20 ML IVP SCH (13:35)
[2021-11-01] MEDS ORDERED: *HR* Propofol 200 MG/20 ML VIAL IVP ONE (15:21)
[2021-11-01] MEDS ORDERED: Lidocaine -MPF 2% 2 ML VIAL ONE (15:21)
[2021-11-01] MEDS ORDERED: Ondansetron 4 MG/2 ML VIAL ONE (15:21)
[2021-11-01] MEDS ORDERED: *HR* Rocuronium Bromide 50 MG/5 ML VIAL ONE (15:21)
[2021-11-01] MEDS ORDERED: *HR* FentaNYL (PF) 100 MCG/2 ML VIAL ONE ×2 (16:22→17:25)
[2021-11-01] MEDS ORDERED: Vancomycin 1,000 MG VIAL ONE ×2 (16:38→17:30)
[2021-11-01] MEDS ORDERED: *HR* HYDROmorphone PF 0.5 MG/0.5 ML SYRINGE IVP PRN (16:57)
[2021-11-01] MEDS ORDERED: *HR* OxyCODONE Immed Rel 5 MG TABLET PO PRN (16:57)
[2021-11-01] MEDS ORDERED: Ondansetron 4 MG/2 ML VIAL IVP PRN ×2 (16:57→19:35)
[2021-11-01] MEDS ORDERED: Sugammadex Sodium 200 MG/2 ML VIAL IV ONE (17:53)
[2021-11-01] MEDS: *HR* FentaNYL (PF) 100 MCG/2 ML VIAL IVP PRN ×3 (18:40→18:50)
[2021-11-01] MEDS ORDERED: Acetaminophen 325 MG TABLET PO PRN (19:35)
[2021-11-01] MEDS ORDERED: Naloxone 0.4 MG/ML INJ IVP PRN (19:35)
[2021-11-01] MEDS: Cholecalciferol (D-3) 1,000 UNIT (25MCG) TABLET PO SCH ×2 (21:45→21:48)
[2021-11-01] MEDS: *HR* OxyCODONE Immed Rel 5 MG TABLET PO PRN (22:30)
[2021-11-02] MEDS: Cefepime HCl 2,000 MG in 0.9 % Sodium Chloride 20 ML IVP SCH ×2 (00:05→12:46)
[2021-11-02] MEDS: *HR* HYDROcodone/Acet 5/325 mg TABLET PO PRN ×2 (02:32→12:46)
[2021-11-02 08:50] LABS: Basophils # 0.1 K/mcL (0.0-0.2); Basophils % 0.9 %; Eosinophils # 0.1 K/mcL (0.0-0.6); Hematocrit 29.5 % (35.3-44.9); Hemoglobin 9.2 g/dL (11.5-15.4); Immature Granulocytes % 0.6 % (0-4); Lymphocytes # 1.3 K/mcL (0.6-4.6); Lymphocytes % 18.6 %; Mean Corpuscular HGB Conc 31.2 g/dL (31.6-35.5); Mean Corpuscular Hemoglobin 25.7 pg (28.0-33.3); Mean Corpuscular Volume 82.4 fL (83.0-100.0); Mean Platelet Volume 10.2 fL (9.4-12.4); Monocytes # 0.5 K/mcL (0.0-1.3); Monocytes % 7.2 %; Neutrophils # 4.9 K/mcL (1.6-8.9); Platelet Count 374 K/mcL (140-400); Red Blood Count 3.58 M/mcL (3.82-4.97); Red Cell Distribution Width 15.1 % (11.5-14.5); Segmented Neutrophils % 70.7 %; White Blood Count 6.9 K/mcL (4.3-11.1)
[2021-11-02 09:06] LABS: BUN/Creatinine Ratio 10 (6-26); Blood Urea Nitrogen 7 mg/dL (8-23); Calcium 8.7 mg/dL (8.6-10.3); Carbon Dioxide 25 mEq/L (23-29); Chloride 101 mEq/L (98-107); Glucose 79 mg/dL (70-105); Osmolality,Calculated 271 (280-300); Potassium 3.7 mEq/L (3.5-5.1); Sodium 132 mEq/L (136-145); eGFR For African Americans > 60 (> 60); eGFR For Non-African Americans > 60 (> 60)
[2021-11-02] MEDS: Gabapentin 400 MG CAPSULE PO SCH ×3 (10:02→20:00)
[2021-11-02] MEDS: Cholecalciferol (D-3) 1,000 UNIT (25MCG) TABLET PO SCH (10:02)
[2021-11-02] MEDS: Aspirin Enteric Coated 81 MG Tablet PO SCH (10:03)
[2021-11-02] MEDS: BuPROPion XL (24 HR) 150 MG TABLET PO SCH (10:03)
[2021-11-02] MEDS: *HR* OxyCODONE Immed Rel 5 MG TABLET PO PRN (21:27)
[2021-11-02] MEDS: CeFAZolin 2,000 MG/120 ML BAG IVPB SCH (22:46)
[2021-11-02] MEDS: Melatonin 3 MG TABLET PO PRN (22:50)
[2021-11-03] MEDS: *HR* OxyCODONE Immed Rel 5 MG TABLET PO PRN ×3 (04:12→19:54)
[2021-11-03 05:11] LABS: Basophils # 0.1 K/mcL (0.0-0.2); Basophils % 0.8 %; Eosinophils # 0.3 K/mcL (0.0-0.6); Eosinophils % 4.2 %; Hematocrit 25.4 % (35.3-44.9); Immature Granulocytes % 0.6 % (0-4); Lymphocytes # 1.3 K/mcL (0.6-4.6); Lymphocytes % 19.5 %; Mean Corpuscular HGB Conc 31.5 g/dL (31.6-35.5); Mean Corpuscular Hemoglobin 25.6 pg (28.0-33.3); Mean Corpuscular Volume 81.4 fL (83.0-100.0); Mean Platelet Volume 10.4 fL (9.4-12.4); Monocytes # 0.6 K/mcL (0.0-1.3); Monocytes % 8.3 %; Neutrophils # 4.4 K/mcL (1.6-8.9); Platelet Count 310 K/mcL (140-400); Red Blood Count 3.12 M/mcL (3.82-4.97); Red Cell Distribution Width 15.3 % (11.5-14.5); Segmented Neutrophils % 66.6 %; White Blood Count 6.7 K/mcL (4.3-11.1)
[2021-11-03 05:24] LABS: BUN/Creatinine Ratio 14 (6-26); Blood Urea Nitrogen 10 mg/dL (8-23); Calcium 8.2 mg/dL (8.6-10.3); Carbon Dioxide 24 mEq/L (23-29); Chloride 106 mEq/L (98-107); Glucose 91 mg/dL (70-105); Osmolality,Calculated 281 (280-300); Potassium 3.5 mEq/L (3.5-5.1); Sodium 136 mEq/L (136-145); eGFR For African Americans > 60 (> 60); eGFR For Non-African Americans > 60 (> 60)
[2021-11-03] MEDS: Cholecalciferol (D-3) 1,000 UNIT (25MCG) TABLET PO SCH (08:38)
[2021-11-03] MEDS: Aspirin Enteric Coated 81 MG Tablet PO SCH (08:38)
[2021-11-03] MEDS: BuPROPion XL (24 HR) 150 MG TABLET PO SCH (08:38)
[2021-11-03] MEDS: Gabapentin 400 MG CAPSULE PO SCH ×3 (08:39→19:55)
[2021-11-03] MEDS: CeFAZolin 2,000 MG/120 ML BAG IVPB SCH ×3 (08:40→23:13)
[2021-11-03] MEDS: *HR* HYDROcodone/Acet 5/325 mg TABLET PO PRN ×2 (17:51→23:18)
[2021-11-03] MEDS: Melatonin 3 MG TABLET PO PRN (23:18)
[2021-11-04] MEDS: *HR* OxyCODONE Immed Rel 5 MG TABLET PO PRN ×2 (03:39→15:34)
[2021-11-04] MEDS: CeFAZolin 2,000 MG/120 ML BAG IVPB SCH ×3 (08:52→23:04)
[2021-11-04] MEDS: Cholecalciferol (D-3) 1,000 UNIT (25MCG) TABLET PO SCH (08:52)
[2021-11-04] MEDS: Aspirin Enteric Coated 81 MG Tablet PO SCH (08:52)
[2021-11-04] MEDS: BuPROPion XL (24 HR) 150 MG TABLET PO SCH (08:52)
[2021-11-04] MEDS: Gabapentin 400 MG CAPSULE PO SCH ×3 (08:52→19:40)
[2021-11-04] MEDS: *HR* HYDROcodone/Acet 5/325 mg TABLET PO PRN ×2 (09:03→19:40)
[2021-11-04] MEDS: Melatonin 3 MG TABLET PO PRN (21:32)
[2021-11-05] MEDS: *HR* OxyCODONE Immed Rel 5 MG TABLET PO PRN ×3 (01:33→15:42)
[2021-11-05 03:09] LABS: Basophils # 0.1 K/mcL (0.0-0.2); Basophils % 1.1 %; Eosinophils # 0.4 K/mcL (0.0-0.6); Hematocrit 25.4 % (35.3-44.9); Hemoglobin 7.7 g/dL (11.5-15.4); Immature Granulocytes % 0.7 % (0-4); Lymphocytes # 1.4 K/mcL (0.6-4.6); Lymphocytes % 19.2 %; Mean Corpuscular HGB Conc 30.3 g/dL (31.6-35.5); Mean Corpuscular Hemoglobin 25.2 pg (28.0-33.3); Mean Platelet Volume 9.9 fL (9.4-12.4); Monocytes # 0.5 K/mcL (0.0-1.3); Monocytes % 6.3 %; Platelet Count 318 K/mcL (140-400); Red Blood Count 3.06 M/mcL (3.82-4.97); Red Cell Distribution Width 15.3 % (11.5-14.5); Segmented Neutrophils % 67.7 %; White Blood Count 7.3 K/mcL (4.3-11.1)
[2021-11-05 03:29] LABS: BUN/Creatinine Ratio 12 (6-26); Blood Urea Nitrogen 8 mg/dL (8-23); Calcium 8.5 mg/dL (8.6-10.3); Carbon Dioxide 27 mEq/L (23-29); Chloride 102 mEq/L (98-107); Glucose 101 mg/dL (70-105); Osmolality,Calculated 276 (280-300); Potassium 3.9 mEq/L (3.5-5.1); Sodium 134 mEq/L (136-145); eGFR For African Americans > 60 (> 60); eGFR For Non-African Americans > 60 (> 60)
[2021-11-05] MEDS: CeFAZolin 2,000 MG/120 ML BAG IVPB SCH ×3 (07:29→23:31)
[2021-11-05] MEDS: BuPROPion XL (24 HR) 150 MG TABLET PO SCH (07:30)
[2021-11-05] MEDS: Gabapentin 400 MG CAPSULE PO SCH ×3 (07:30→20:59)
[2021-11-05] MEDS: Aspirin Enteric Coated 81 MG Tablet PO SCH (07:30)
[2021-11-05] MEDS: Cholecalciferol (D-3) 1,000 UNIT (25MCG) TABLET PO SCH (07:30)
[2021-11-05] MEDS: *HR* HYDROcodone/Acet 5/325 mg TABLET PO PRN (20:59)
[2021-11-05] MEDS: Lactobacillus 1 EACH CAP.SPRINK PO SCH (20:59)
[2021-11-05] MEDS: Melatonin 3 MG TABLET PO PRN (21:01)
[2021-11-06 04:42] LABS: Basophils # 0.1 K/mcL (0.0-0.2); Basophils % 1.3 %; Eosinophils # 0.4 K/mcL (0.0-0.6); Eosinophils % 5.1 %; Immature Granulocytes % 0.6 % (0-4); Lymphocytes # 1.4 K/mcL (0.6-4.6); Lymphocytes % 20.7 %; Mean Corpuscular HGB Conc 30.8 g/dL (31.6-35.5); Mean Corpuscular Hemoglobin 25.4 pg (28.0-33.3); Mean Corpuscular Volume 82.5 fL (83.0-100.0); Mean Platelet Volume 10.4 fL (9.4-12.4); Monocytes # 0.5 K/mcL (0.0-1.3); Monocytes % 7.4 %; Neutrophils # 4.5 K/mcL (1.6-8.9); Platelet Count 359 K/mcL (140-400); Red Blood Count 3.15 M/mcL (3.82-4.97); Red Cell Distribution Width 15.4 % (11.5-14.5); Segmented Neutrophils % 64.9 %; White Blood Count 6.9 K/mcL (4.3-11.1)
[2021-11-06 05:01] LABS: BUN/Creatinine Ratio 14 (6-26); Blood Urea Nitrogen 9 mg/dL (8-23); Calcium 8.7 mg/dL (8.6-10.3); Carbon Dioxide 26 mEq/L (23-29); Chloride 104 mEq/L (98-107); Glucose 85 mg/dL (70-105); Osmolality,Calculated 280 (280-300); Potassium 4.2 mEq/L (3.5-5.1); Sodium 136 mEq/L (136-145); eGFR For African Americans > 60 (> 60); eGFR For Non-African Americans > 60 (> 60)
[2021-11-06] MEDS: Aspirin Enteric Coated 81 MG Tablet PO SCH (08:47)
[2021-11-06] MEDS: BuPROPion XL (24 HR) 150 MG TABLET PO SCH (08:47)
[2021-11-06] MEDS: Gabapentin 400 MG CAPSULE PO SCH (08:47)
[2021-11-06] MEDS: Lactobacillus 1 EACH CAP.SPRINK PO SCH (08:47)
[2021-11-06] MEDS: Cholecalciferol (D-3) 1,000 UNIT (25MCG) TABLET PO SCH (08:47)
[2021-11-06] MEDS: *HR* HYDROcodone/Acet 5/325 mg TABLET PO PRN (08:54)
[2021-11-06] MEDS: CeFAZolin 2,000 MG/120 ML BAG IVPB SCH (08:55)
[2021-11-06 10:14] VITALS: BP 115/58; PULSE 76; TEMP 97.8; O2SAT 96
== END 2021-11-06 13:39 | disposition home health service (06) | DRG 857 ==
LOC: 4WAOSI → SUATTDRO 15:51
PROVIDERS: ADMIT Pharmacist; ATTEND Internal Medicine

== ENCOUNTER 2021-11-11 20:05 | Observation (INO) ==
[2021-11-11] MEDS ORDERED: 0.9 % Sodium Chloride 1,000 ML IVC ONE (20:44)
[2021-11-11 20:59] LABS: Mean Platelet Volume 10.2 fL (9.4-12.4)
[2021-11-11 21:01] LABS: Basophils # 0.1 K/mcL (0.0-0.2); Basophils % 1.2 %; Eosinophils # 0.2 K/mcL (0.0-0.6); Eosinophils % 2.8 %; Hematocrit 18.5 % (35.3-44.9); Immature Granulocytes % 0.4 % (0-4); Lymphocytes # 1.3 K/mcL (0.6-4.6); Lymphocytes % 18.6 %; Mean Corpuscular HGB Conc 29.7 g/dL (31.6-35.5); Mean Corpuscular Volume 84.1 fL (83.0-100.0); Monocytes # 0.6 K/mcL (0.0-1.3); Monocytes % 8.3 %; Platelet Count 400 K/mcL (140-400); Segmented Neutrophils % 68.7 %; White Blood Count 6.9 K/mcL (4.3-11.1)
[2021-11-11 21:08] LABS: INR 1.1
[2021-11-11 21:11] LABS: Activated Partial Thrombo Time 49.3 Seconds (26.0-36.0)
[2021-11-11 21:17] LABS: Alanine Aminotransferase 6 Units/L (7-52); Albumin 3.3 g/dL (3.5-5.7); Albumin/Globulin Ratio 1.1 (1.1-2.2); Alkaline Phosphatase 89 Units/L (34-104); Aspartate Amino Transferase 24 Units/L (13-39); BUN/Creatinine Ratio 24 (6-26); Bilirubin,Total 0.2 mg/dL (0.3-1.0); Blood Urea Nitrogen 16 mg/dL (8-23); Calcium 8.3 mg/dL (8.6-10.3); Carbon Dioxide 21 mEq/L (23-29); Chloride 107 mEq/L (98-107); Globulin 2.9 g/dL (2.4-3.5); Glucose 97 mg/dL (70-105); Neutrophils # 4.7 K/mcL (1.6-8.9); Osmolality,Calculated 281 (280-300); Potassium 3.9 mEq/L (3.5-5.1); Sodium 135 mEq/L (136-145); Total Protein 6.2 g/dL (6.4-8.9); Troponin I < 0.03 ng/mL (< 0.04); eGFR For African Americans > 60 (> 60); eGFR For Non-African Americans > 60 (> 60)
[2021-11-11 21:21] LABS: Hemoglobin 5.5 g/dL (11.5-15.4)
[2021-11-12] MEDS ORDERED: 0.9 % Sodium Chloride 500 ML IVC SCH
[2021-11-12] MEDS ORDERED: 0.9 % Sodium Chloride 500 ML ONE (00:03)
[2021-11-12] MEDS ORDERED: Pantoprazole 40 MG VIAL IVP ONE (00:26)
[2021-11-12] MEDS ORDERED: Naloxone 0.4 MG/ML INJ IVP PRN (04:43)
[2021-11-12] MEDS: Pantoprazole 40 MG VIAL IVP SCH ×2 (05:38→16:38)
[2021-11-12] MEDS ORDERED: *HR* HYDROcodone/Acet 5/325 mg TABLET PO PRN (08:35)
[2021-11-12] MEDS: Gabapentin 400 MG CAPSULE PO SCH ×3 (09:18→21:00)
[2021-11-12] MEDS: BuPROPion XL (24 HR) 150 MG TABLET PO SCH (09:18)
[2021-11-12] MEDS: 0.9 % Sodium Chloride 1,000 ML IVC SCH (09:31)
[2021-11-12 12:36] LABS: Basophils # 0.1 K/mcL (0.0-0.2); Basophils % 1.4 %; Eosinophils # 0.2 K/mcL (0.0-0.6); Eosinophils % 2.2 %; Hematocrit 28.2 % (35.3-44.9); Immature Granulocytes % 0.4 % (0-4); Lymphocytes # 0.9 K/mcL (0.6-4.6); Mean Corpuscular HGB Conc 31.6 g/dL (31.6-35.5); Mean Corpuscular Hemoglobin 26.8 pg (28.0-33.3); Mean Corpuscular Volume 84.9 fL (83.0-100.0); Mean Platelet Volume 10.4 fL (9.4-12.4); Monocytes # 0.6 K/mcL (0.0-1.3); Monocytes % 7.9 %; Neutrophils # 5.6 K/mcL (1.6-8.9); Platelet Count 381 K/mcL (140-400); Red Blood Count 3.32 M/mcL (3.82-4.97); Red Cell Distribution Width 16.5 % (11.5-14.5); Segmented Neutrophils % 76.1 %; White Blood Count 7.3 K/mcL (4.3-11.1)
[2021-11-12 12:37] LABS: Hemoglobin 8.9 g/dL (11.5-15.4)
[2021-11-12] MEDS ORDERED: *HR* Propofol 200 MG/20 ML VIAL IVP ONE ×2 (12:49→13:10)
[2021-11-12] MEDS ORDERED: *HR* Succinylcholine 200 MG/10 ML VIAL IVP ONE (12:56)
[2021-11-12] MEDS ORDERED: Lidocaine -MPF 2% 2 ML VIAL ONE (12:56)
[2021-11-12] MEDS ORDERED: Ondansetron 4 MG/2 ML VIAL ONE (12:56)
[2021-11-12] MEDS ORDERED: Lidocaine HCL 4 ML Topical Solution (Laryng-O-Jet Kit Sterile Pak) TP ONE (12:57)
[2021-11-12] MEDS ORDERED: *HR* FentaNYL (PF) 100 MCG/2 ML VIAL ONE (12:58)
[2021-11-12] MEDS ORDERED: CeFAZolin 2,000 MG/120 ML BAG IVPB SCH (15:00)
[2021-11-12] MEDS: CeFAZolin 2,000 MG/120 ML BAG IVPB SCH (16:42)
[2021-11-13] MEDS: 0.9 % Sodium Chloride 1,000 ML IVC SCH (01:02)
[2021-11-13] MEDS: CeFAZolin 2,000 MG/120 ML BAG IVPB SCH ×2 (01:02→09:38)
[2021-11-13] MEDS: Pantoprazole 40 MG VIAL IVP SCH (04:00)
[2021-11-13 04:48] LABS: Hematocrit 28.4 % (35.3-44.9); Hemoglobin 8.8 g/dL (11.5-15.4); Mean Corpuscular Hemoglobin 26.7 pg (28.0-33.3); Mean Corpuscular Volume 86.3 fL (83.0-100.0); Mean Platelet Volume 10.2 fL (9.4-12.4); Platelet Count 381 K/mcL (140-400); Red Blood Count 3.29 M/mcL (3.82-4.97); White Blood Count 9.2 K/mcL (4.3-11.1)
[2021-11-13 05:00] LABS: BUN/Creatinine Ratio 11 (6-26); Blood Urea Nitrogen 10 mg/dL (8-23); Calcium 8.5 mg/dL (8.6-10.3); Carbon Dioxide 23 mEq/L (23-29); Chloride 108 mEq/L (98-107); Glucose 90 mg/dL (70-105); Magnesium 1.9 mg/dL (1.6-2.6); Osmolality,Calculated 281 (280-300); Sodium 136 mEq/L (136-145); eGFR For African Americans > 60 (> 60); eGFR For Non-African Americans > 60 (> 60)
[2021-11-13] MEDS: Gabapentin 400 MG CAPSULE PO SCH (09:29)
[2021-11-13] MEDS: BuPROPion XL (24 HR) 150 MG TABLET PO SCH (09:29)
[2021-11-13 10:50] VITALS: BP 123/46; PULSE 81; TEMP 99; O2SAT 97
== END 2021-11-13 12:50 | disposition home health service (06) ==
LOC: EMEROOARM 20:05 → 3NENU 20:05 → SUATTDRO 11-12 03:10 → 3NENU 11-12 04:07
PROVIDERS: ADMIT Internal Medicine; ATTEND Internal Medicine

== ENCOUNTER 2021-12-14 15:21 | Inpatient (IN) ==
[2021-12-14] MEDS ORDERED: Iopamidol - 370 500 ML MLS IVP ONE (18:59)
[2021-12-14] MEDS ORDERED: Albuterol 2.5 MG/3 ML NEBULIZER IH ONE ×2 (19:05→20:21)
[2021-12-14 19:17] LABS: Basophils # 0.1 K/mcL (0.0-0.2); Basophils % 0.9 %; Eosinophils % 0.4 %; Hematocrit 29.6 % (35.3-44.9); Hemoglobin 9.2 g/dL (11.5-15.4); Immature Granulocytes % 0.9 % (0-4); Lymphocytes % 10.1 %; Mean Corpuscular HGB Conc 31.1 g/dL (31.6-35.5); Mean Corpuscular Hemoglobin 28.5 pg (28.0-33.3); Mean Corpuscular Volume 91.6 fL (83.0-100.0); Mean Platelet Volume 10.5 fL (9.4-12.4); Monocytes % 9.6 %; Neutrophils # 7.9 K/mcL (1.6-8.9); Nucleated Red Blood Cells 0.3 /100 WBC (0); Platelet Count 321 K/mcL (140-400); Red Blood Count 3.23 M/mcL (3.82-4.97); Red Cell Distribution Width 16.9 % (11.5-14.5); Segmented Neutrophils % 78.1 %
[2021-12-14 19:19] LABS: White Blood Count 10.1 K/mcL (4.3-11.1)
[2021-12-14 19:30] LABS: VBG HCO3 21 mEq/L (21-27); VBG PCO2 37 mmHg (41-51); VBG PH 7.37 pH Units (7.32-7.42); VBG PO2 58 mmHg (25-50)
[2021-12-14 19:41] LABS: BUN/Creatinine Ratio 15 (6-26); Blood Urea Nitrogen 9 mg/dL (8-23); Calcium 8.8 mg/dL (8.6-10.3); Carbon Dioxide 23 mEq/L (23-29); Chloride 99 mEq/L (98-107); Glucose 110 mg/dL (70-105); Osmolality,Calculated 269 (280-300); Potassium 3.9 mEq/L (3.5-5.1); Sodium 130 mEq/L (136-145); Troponin I < 0.03 ng/mL (< 0.04); eGFR For African Americans > 60 (> 60); eGFR For Non-African Americans > 60 (> 60)
[2021-12-14 20:15] LABS: Influenza A PCR Negative (Negative); Influenza B PCR Negative (Negative); Resp. Syncytial Virus PCR Negative (Negative)
[2021-12-14 20:18] LABS: SARS-CoV-2 by PCR (In House) Positive (Negative)
[2021-12-14] MEDS ORDERED: cefTRIAXone 2,000 MG in 0.9 % Sodium Chloride 20 ML IVP ONE (22:03)
[2021-12-14] MEDS ORDERED: Azithromycin 500 MG in 0.9 % Sodium Chloride 250 ML IVPB ONE (22:03)
[2021-12-14] MEDS ORDERED: Ondansetron 4 MG/2 ML VIAL IVP PRN (22:52)
[2021-12-14] MEDS ORDERED: Naloxone 0.4 MG/ML INJ IVP PRN (22:52)
[2021-12-14] MEDS ORDERED: cefTRIAXone 2,000 MG in 0.9 % Sodium Chloride Mini Bag 100 ML IVPB ONE (23:00)
[2021-12-14] MEDS ORDERED: Saliva Stimulant 44.3ml BOTTLE PO PRN (23:48)
[2021-12-14] MEDS ORDERED: Saline Nasal Spray 44 ML BOTTLE NS PRN (23:48)
[2021-12-14 23:53] LABS: ABG Base Excess -5 mEq/L (-2 to 3); ABG HCO3 20 mEq/L (21-27); ABG Oxygen Saturation 95 % (95-98); ABG PCO2 33 mmHg (35-45); ABG PH 7.39 pH Units (7.32-7.45); ABG PO2 74 mmHg (85-104); ABG TCO2 21 mEq/L (20-26)
[2021-12-15] MEDS ORDERED: Dexamethasone Sodium Phos/PF 10 MG/ML VIAL IVP ONE (00:15)
[2021-12-15] MEDS ORDERED: *HR* Dextrose 50 % in Water (Syg) 50 ML SYRINGE IVP PRN (01:28)
[2021-12-15] MEDS ORDERED: Dextrose Gel 15 GM/37.5 ML TUBE PO PRN ×2 (01:28)
[2021-12-15] MEDS ORDERED: D5% in Water 1,000 ML IVC PRN (01:28)
[2021-12-15] MEDS ORDERED: hydrOXYzine pamoate 25 MG CAPSULE PO PRN (02:54)
[2021-12-15] MEDS ORDERED: Melatonin 3 MG TABLET PO PRN (02:55)
[2021-12-15 03:38] LABS: VBG Ionized Calcium 1.12 mmol/L (1.15-1.35)
[2021-12-15 03:49] LABS: Albumin 3.9 g/dL (3.5-5.7); Albumin/Globulin Ratio 1.2 (1.1-2.2); Bilirubin,Direct 0.1 mg/dL (0.0-0.2); Bilirubin,Indirect 0.2 mg/dL (0.0-1.0); Bilirubin,Total 0.3 mg/dL (0.3-1.0); Globulin 3.2 g/dL (2.4-3.5); Total Protein 7.1 g/dL (6.4-8.9)
[2021-12-15 03:50] LABS: % Iron Saturation 5 % (15-50); C-Reactive Protein 33 mg/L (Less than 10); Iron 24 mcg/dL (50-170); Lactate Dehydrogenase 263 Units/L (140-271); Transferrin 333 mg/dL (203-362)
[2021-12-15] MEDS ORDERED: Calcium Gluconate 1gm/50mL 1 GM/50 ML BAG IVPB SCH (04:00)
[2021-12-15] MEDS ORDERED: *HR* OxyCODONE Immed Rel 5 MG TABLET PO PRN (04:05)
[2021-12-15] MEDS ORDERED: *HR* OxyCODONE/APAP 5/325 TABLET PO PRN (04:05)
[2021-12-15 04:08] LABS: Ferritin 54 ng/mL (10-120)
[2021-12-15 04:22] LABS: INR 1.1; Prothrombin Time 11.7 Seconds (9.4-12.1)
[2021-12-15 04:34] LABS: Folate 17.6 ng/mL (3.0-16.0)
[2021-12-15 04:42] LABS: Vitamin B12 > 1500 pg/mL (250-1100)
[2021-12-15] MEDS ORDERED: Remdesivir 200 MG in 0.9 % Sodium Chloride 100 ML IVPB ONE (05:00)
[2021-12-15 05:48] LABS: Alanine Aminotransferase 6 Units/L (7-52); Albumin 3.7 g/dL (3.5-5.7); Albumin/Globulin Ratio 1.2 (1.1-2.2); Alkaline Phosphatase 111 Units/L (34-104); Aspartate Amino Transferase 36 Units/L (13-39); BUN/Creatinine Ratio 17 (6-26); Bilirubin,Total 0.3 mg/dL (0.3-1.0); Blood Urea Nitrogen 9 mg/dL (8-23); Calcium 8.6 mg/dL (8.6-10.3); Carbon Dioxide 21 mEq/L (23-29); Chloride 101 mEq/L (98-107); Globulin 3.2 g/dL (2.4-3.5); Glucose 120 mg/dL (70-105); Osmolality,Calculated 272 (280-300); Potassium 4.1 mEq/L (3.5-5.1); Sodium 131 mEq/L (136-145); Total Protein 6.9 g/dL (6.4-8.9); eGFR For African Americans > 60 (> 60); eGFR For Non-African Americans > 60 (> 60)
[2021-12-15] MEDS: Ipratropium 1 PUFF INHALER IH SCH ×7 (08:53→23:43)
[2021-12-15] MEDS ORDERED: Furosemide 20 MG/2 ML VIAL IVP SCH (09:00)
[2021-12-15] MEDS ORDERED: Chlorhexidine Rinse 15 ML MOUTHWASH MM SCH (09:00)
[2021-12-15] MEDS: Dexamethasone Sodium Phos/PF 10 MG/ML VIAL IVP SCH (10:30)
[2021-12-15] MEDS: Lactobacillus 1 EACH CAP.SPRINK PO SCH ×2 (10:31→20:43)
[2021-12-15] MEDS: Cholecalciferol (D-3) 1,000 UNIT (25MCG) TABLET PO SCH (10:32)
[2021-12-15] MEDS: Multivit/Ca/Min/Fe/FA 1 TAB TABLET PO SCH (10:32)
[2021-12-15] MEDS: Aspirin Enteric Coated 81 MG Tablet PO SCH (10:32)
[2021-12-15] MEDS: Gabapentin 400 MG CAPSULE PO SCH ×3 (10:32→20:43)
[2021-12-15] MEDS: Nicotine 21 MG PATCH.TD24 TD SCH (10:33)
[2021-12-15] MEDS: BuPROPion XL (24 HR) 150 MG TABLET PO SCH (10:33)
[2021-12-15] MEDS: Budesonide/Formoterol 160/4.5 1 PUFF INH IH SCH ×2 (10:34→20:31)
[2021-12-15] MEDS: Insulin LISPRO 300 UNITS/3 ML VIAL SUBQ SCH ×3 (10:36→16:46)
[2021-12-15] MEDS: *HR* Enoxaparin 40 MG/0.4 ML SYRINGE SQ SCH (10:57)
[2021-12-15] MEDS: Furosemide 20 MG/2 ML VIAL IVP SCH ×2 (10:58→16:44)
[2021-12-15] MEDS: Artificial Tears SOLN 15 ML BOTTLE BOTH EYES SCH ×2 (10:59→20:42)
[2021-12-15] MEDS: Pyridoxine (B-6) 50 MG TABLET PO SCH (11:00)
[2021-12-16] MEDS: Ipratropium 1 PUFF INHALER IH SCH ×6 (04:21→20:31)
[2021-12-16] MEDS: Acetaminophen 325 MG TABLET PO PRN ×2 (05:58→15:07)
[2021-12-16] MEDS: *HR* Enoxaparin 40 MG/0.4 ML SYRINGE SQ SCH (05:58)
[2021-12-16] MEDS ORDERED: Remdesivir 100 MG in 0.9 % Sodium Chloride 100 ML IVPB SCH (06:00)
[2021-12-16 06:39] LABS: Alanine Aminotransferase 9 Units/L (7-52); Albumin 3.7 g/dL (3.5-5.7); Albumin/Globulin Ratio 1.3 (1.1-2.2); Alkaline Phosphatase 103 Units/L (34-104); Aspartate Amino Transferase 37 Units/L (13-39); BUN/Creatinine Ratio 13 (6-26); Bilirubin,Total 0.3 mg/dL (0.3-1.0); Blood Urea Nitrogen 8 mg/dL (8-23); Calcium 8.3 mg/dL (8.6-10.3); Carbon Dioxide 27 mEq/L (23-29); Chloride 98 mEq/L (98-107); Globulin 2.8 g/dL (2.4-3.5); Glucose 100 mg/dL (70-105); Osmolality,Calculated 270 (280-300); Potassium 3.3 mEq/L (3.5-5.1); Sodium 131 mEq/L (136-145); Total Protein 6.5 g/dL (6.4-8.9); eGFR For African Americans > 60 (> 60); eGFR For Non-African Americans > 60 (> 60)
[2021-12-16] MEDS: Budesonide/Formoterol 160/4.5 1 PUFF INH IH SCH ×2 (07:43→20:03)
[2021-12-16] MEDS: Dexamethasone Sodium Phos/PF 10 MG/ML VIAL IVP SCH (09:50)
[2021-12-16] MEDS: BuPROPion XL (24 HR) 150 MG TABLET PO SCH (09:50)
[2021-12-16] MEDS: Multivit/Ca/Min/Fe/FA 1 TAB TABLET PO SCH (09:50)
[2021-12-16] MEDS: Pyridoxine (B-6) 50 MG TABLET PO SCH (09:50)
[2021-12-16] MEDS: Aspirin Enteric Coated 81 MG Tablet PO SCH (09:50)
[2021-12-16] MEDS: Gabapentin 400 MG CAPSULE PO SCH ×3 (09:50→20:31)
[2021-12-16] MEDS: Cholecalciferol (D-3) 1,000 UNIT (25MCG) TABLET PO SCH (09:50)
[2021-12-16] MEDS: Lactobacillus 1 EACH CAP.SPRINK PO SCH ×2 (09:50→20:31)
[2021-12-16] MEDS: cefTRIAXone 1,000 MG in 0.9 % Sodium Chloride 10 ML IVP SCH (09:51)
[2021-12-16] MEDS: Artificial Tears SOLN 15 ML BOTTLE BOTH EYES SCH ×2 (09:52→20:35)
[2021-12-16] MEDS: Nicotine 21 MG PATCH.TD24 TD SCH (09:52)
[2021-12-16] MEDS: Insulin LISPRO 300 UNITS/3 ML VIAL SUBQ SCH ×3 (09:52→17:28)
[2021-12-16] MEDS: Furosemide 20 MG/2 ML VIAL IVP SCH ×2 (10:13→16:41)
[2021-12-16] MEDS: polyethylene glycoL 3350 17 GM POWD.PACK PO SCH (17:28)
[2021-12-17] MEDS: Acetaminophen 325 MG TABLET PO PRN (00:46)
[2021-12-17 03:03] LABS: Alanine Aminotransferase 10 Units/L (7-52); Albumin 3.4 g/dL (3.5-5.7); Albumin/Globulin Ratio 1.2 (1.1-2.2); Alkaline Phosphatase 104 Units/L (34-104); Aspartate Amino Transferase 34 Units/L (13-39); BUN/Creatinine Ratio 20 (6-26); Bilirubin,Total 0.3 mg/dL (0.3-1.0); Blood Urea Nitrogen 11 mg/dL (8-23); Calcium 8.3 mg/dL (8.6-10.3); Carbon Dioxide 25 mEq/L (23-29); Chloride 100 mEq/L (98-107); Globulin 2.9 g/dL (2.4-3.5); Glucose 93 mg/dL (70-105); Osmolality,Calculated 271 (280-300); Potassium 3.8 mEq/L (3.5-5.1); Sodium 131 mEq/L (136-145); Total Protein 6.3 g/dL (6.4-8.9); eGFR For African Americans > 60 (> 60); eGFR For Non-African Americans > 60 (> 60)
[2021-12-17] MEDS: Ipratropium 1 PUFF INHALER IH SCH ×4 (04:07→16:16)
[2021-12-17] MEDS: *HR* Enoxaparin 40 MG/0.4 ML SYRINGE SQ SCH (05:16)
[2021-12-17] MEDS: Budesonide/Formoterol 160/4.5 1 PUFF INH IH SCH (07:55)
[2021-12-17] MEDS: Insulin LISPRO 300 UNITS/3 ML VIAL SUBQ SCH ×2 (10:57→12:33)
[2021-12-17] MEDS: Dexamethasone Sodium Phos/PF 10 MG/ML VIAL IVP SCH (10:58)
[2021-12-17] MEDS: cefTRIAXone 1,000 MG in 0.9 % Sodium Chloride 10 ML IVP SCH (10:59)
[2021-12-17] MEDS: BuPROPion XL (24 HR) 150 MG TABLET PO SCH (10:59)
[2021-12-17] MEDS: Cholecalciferol (D-3) 1,000 UNIT (25MCG) TABLET PO SCH (10:59)
[2021-12-17] MEDS: Lactobacillus 1 EACH CAP.SPRINK PO SCH (10:59)
[2021-12-17] MEDS: Artificial Tears SOLN 15 ML BOTTLE BOTH EYES SCH (11:00)
[2021-12-17] MEDS: Multivit/Ca/Min/Fe/FA 1 TAB TABLET PO SCH (11:00)
[2021-12-17] MEDS: polyethylene glycoL 3350 17 GM POWD.PACK PO SCH (11:00)
[2021-12-17] MEDS: Pyridoxine (B-6) 50 MG TABLET PO SCH (11:00)
[2021-12-17] MEDS: Gabapentin 400 MG CAPSULE PO SCH (11:00)
[2021-12-17] MEDS: Aspirin Enteric Coated 81 MG Tablet PO SCH (11:00)
[2021-12-17] MEDS: Nicotine 21 MG PATCH.TD24 TD SCH (11:01)
[2021-12-17] MEDS: Furosemide 20 MG/2 ML VIAL IVP SCH (11:15)
[2021-12-17 11:52] VITALS: BP 116/47; PULSE 105; TEMP 97.6
[2021-12-17 13:23] VITALS: O2SAT 98
== END 2021-12-17 16:28 | disposition home or self-care (01) | DRG 177 ==
LOC: SUATTDRO → EMEROOARM 15:21 → 2NENU 12-15 11:45 → SUATTDRO 12-15 11:45 → 2NENU 12-15 15:20
PROVIDERS: ADMIT Family Medicine; ATTEND Internal Medicine

== ENCOUNTER 2021-12-22 12:08 | Inpatient (IN) ==
[2021-12-22 13:15] LABS: Hematocrit 27.6 % (35.3-44.9); Hemoglobin 8.1 g/dL (11.5-15.4); Mean Corpuscular HGB Conc 29.3 g/dL (31.6-35.5); Mean Platelet Volume 10.4 fL (9.4-12.4); Nucleated Red Blood Cells 0.7 /100 WBC (0); Platelet Count 336 K/mcL (140-400); Red Cell Distribution Width 15.8 % (11.5-14.5); White Blood Count 10.1 K/mcL (4.3-11.1)
[2021-12-22 13:29] LABS: Prothrombin Time 11.6 Seconds (9.4-12.1)
[2021-12-22 13:32] LABS: Activated Partial Thrombo Time 40.9 Seconds (26.0-36.0)
[2021-12-22 13:37] LABS: Eosinophils # 0.2 K/mcL (0.0-0.6); Lymphocytes # 1.6 K/mcL (0.6-4.6); Monocytes # 0.3 K/mcL (0.0-1.3); Platelet Estimate Normal (Normal)
[2021-12-22 13:41] LABS: Alanine Aminotransferase 24 Units/L (7-52); Albumin 3.6 g/dL (3.5-5.7); Albumin/Globulin Ratio 1.4 (1.1-2.2); Alkaline Phosphatase 103 Units/L (34-104); Aspartate Amino Transferase 37 Units/L (13-39); BUN/Creatinine Ratio 15 (6-26); Bilirubin,Indirect 0.2 mg/dL (0.0-1.0); Bilirubin,Total 0.2 mg/dL (0.3-1.0); Blood Urea Nitrogen 9 mg/dL (8-23); Calcium 8.2 mg/dL (8.6-10.3); Carbon Dioxide 22 mEq/L (23-29); Chloride 105 mEq/L (98-107); Globulin 2.6 g/dL (2.4-3.5); Glucose 82 mg/dL (70-105); Osmolality,Calculated 276 (280-300); Potassium 3.8 mEq/L (3.5-5.1); Sodium 134 mEq/L (136-145); Total Protein 6.2 g/dL (6.4-8.9); Troponin I < 0.03 ng/mL (< 0.04); eGFR For African Americans > 60 (> 60); eGFR For Non-African Americans > 60 (> 60)
[2021-12-22] MEDS ORDERED: Iopamidol - 370 500 ML MLS IVP ONE (13:51)
[2021-12-22] MEDS ORDERED: Ipratropium/Albuterol Neb 3 ML IH ONE (13:51)
[2021-12-22 14:55] LABS: Adenovirus Not Detected (Not Detect); Bordetella Pertussis Not Detected (Not Detect); Chlamydophila pneumoniae Not Detected (Not Detect); Coronavirus 229E Not Detected (Not Detect); Coronavirus HKU1 Not Detected (Not Detect); Coronavirus NL63 Not Detected (Not Detect); Coronavirus OC43 Not Detected (Not Detect); Human Metapneumovirus Not Detected (Not Detect); Human Rhinovirus/Enterovirus Not Detected (Not Detect); Influenza A Subtype 2009 H1 Not Detected (Not Detect); Influenza B Not Detected (Not Detect); Mycoplasma pneumoniae Not Detected (Not Detect); Parainfluenza Virus 1 Not Detected (Not Detect); Parainfluenza Virus 2 Not Detected (Not Detect); Parainfluenza Virus 3 Not Detected (Not Detect); Parainfluenza Virus 4 Not Detected (Not Detect); Respiratory Syncytial Virus Not Detected (Not Detect)
[2021-12-22 14:58] LABS: SARS-CoV-2 DETECTED (Not Detect)
[2021-12-22] MEDS ORDERED: Furosemide 40 MG/4 ML VIAL IVP ONE (15:03)
[2021-12-22] MEDS ORDERED: Acetaminophen 325 MG TABLET PO PRN (15:19)
[2021-12-22] MEDS ORDERED: Naloxone 0.4 MG/ML INJ IVP PRN (15:19)
[2021-12-22] MEDS ORDERED: Ondansetron 4 MG/2 ML VIAL IVP PRN (15:19)
[2021-12-22] MEDS ORDERED: Remdesivir 200 MG in 0.9 % Sodium Chloride 100 ML IVPB ONE (15:26)
[2021-12-22] MEDS: Ipratropium 1 PUFF INHALER IH SCH ×2 (17:56→22:28)
[2021-12-22] MEDS: Gabapentin 400 MG CAPSULE PO SCH (20:03)
[2021-12-22] MEDS: Lactobacillus 1 EACH CAP.SPRINK PO SCH (20:03)
[2021-12-22] MEDS: Pantoprazole 40 MG VIAL IVP SCH (20:04)
[2021-12-22] MEDS: Melatonin 3 MG TABLET PO PRN (20:07)
[2021-12-23 02:26] LABS: Basophils # 0.1 K/mcL (0.0-0.2); Basophils % 0.6 %; Eosinophils % 0.2 %; Hematocrit 27.7 % (35.3-44.9); Hemoglobin 8.3 g/dL (11.5-15.4); Immature Granulocytes % 5.3 % (0-4); Lymphocytes # 0.9 K/mcL (0.6-4.6); Lymphocytes % 7.6 %; Mean Corpuscular Volume 90.2 fL (83.0-100.0); Mean Platelet Volume 10.5 fL (9.4-12.4); Monocytes # 0.4 K/mcL (0.0-1.3); Monocytes % 3.3 %; Neutrophils # 9.4 K/mcL (1.6-8.9); Nucleated Red Blood Cells 0.5 /100 WBC (0); Platelet Count 343 K/mcL (140-400); Red Blood Count 3.07 M/mcL (3.82-4.97); Red Cell Distribution Width 15.5 % (11.5-14.5); White Blood Count 11.3 K/mcL (4.3-11.1)
[2021-12-23 02:51] LABS: Albumin 3.6 g/dL (3.5-5.7); Albumin/Globulin Ratio 1.3 (1.1-2.2); Bilirubin,Direct 0.1 mg/dL (0.0-0.2); Bilirubin,Indirect 0.2 mg/dL (0.0-1.0); Bilirubin,Total 0.3 mg/dL (0.3-1.0); Globulin 2.8 g/dL (2.4-3.5); Total Protein 6.4 g/dL (6.4-8.9)
[2021-12-23 02:52] LABS: BUN/Creatinine Ratio 13 (6-26); Blood Urea Nitrogen 8 mg/dL (8-23); Calcium 8.4 mg/dL (8.6-10.3); Carbon Dioxide 23 mEq/L (23-29); Chloride 103 mEq/L (98-107); Glucose 117 mg/dL (70-105); Osmolality,Calculated 277 (280-300); Potassium 4.3 mEq/L (3.5-5.1); Sodium 134 mEq/L (136-145); eGFR For African Americans > 60 (> 60); eGFR For Non-African Americans > 60 (> 60)
[2021-12-23 02:58] LABS: Hypochromasia Present (Not Present); Platelet Estimate Normal (Normal); Polychromasia 1+ (Not Present); Procalcitonin 0.64 ng/mL (0.00-0.15)
[2021-12-23 03:01] LABS: Thyroid Stimulating Hormone 1.901 mcIU/mL (0.340-5.600)
[2021-12-23 03:11] LABS: Folate 16.2 ng/mL (3.0-16.0)
[2021-12-23] MEDS: Ipratropium 1 PUFF INHALER IH SCH ×4 (04:18→20:00)
[2021-12-23] MEDS ORDERED: *HR* Enoxaparin 40 MG/0.4 ML SYRINGE SQ SCH (06:00)
[2021-12-23] MEDS ORDERED: Pantoprazole 40 MG VIAL IVP SCH (09:00)
[2021-12-23] MEDS: Loratadine 10 MG TABLET PO SCH (09:22)
[2021-12-23] MEDS: BuPROPion XL (24 HR) 150 MG TABLET PO SCH (09:22)
[2021-12-23] MEDS: Gabapentin 400 MG CAPSULE PO SCH ×3 (09:22→19:52)
[2021-12-23] MEDS: Aspirin Enteric Coated 81 MG Tablet PO SCH (09:22)
[2021-12-23] MEDS: Lactobacillus 1 EACH CAP.SPRINK PO SCH ×2 (09:22→19:52)
[2021-12-23] MEDS: Cholecalciferol (D-3) 1,000 UNIT (25MCG) TABLET PO SCH (09:22)
[2021-12-23] MEDS: levoFLOXacin 750 MG/150 ML 750 MG/150 ML BAG IVPB SCH (09:22)
[2021-12-23] MEDS: Pantoprazole 40 MG VIAL IVP SCH ×2 (09:23→19:52)
[2021-12-23] MEDS: Dexamethasone Sodium Phos/PF 10 MG/ML VIAL IVP SCH (09:23)
[2021-12-23] MEDS: Iron Sucrose Complex 250 MG in 0.9 % Sodium Chloride 250 ML IVPB SCH (09:23)
[2021-12-23] MEDS: Furosemide 40 MG/4 ML VIAL IVP SCH (09:23)
[2021-12-23] MEDS: Nicotine 21 MG PATCH.TD24 TD SCH (09:24)
[2021-12-23] MEDS: Pyridoxine (B-6) 50 MG TABLET PO SCH (09:24)
[2021-12-23] MEDS: Remdesivir 100 MG in 0.9 % Sodium Chloride 100 ML IVPB SCH (17:00)
[2021-12-23] MEDS: Melatonin 3 MG TABLET PO PRN (19:54)
[2021-12-24] MEDS: Ipratropium 1 PUFF INHALER IH SCH ×4 (04:17→22:51)
[2021-12-24 05:42] LABS: Hemoglobin 7.8 g/dL (11.5-15.4); Mean Corpuscular Hemoglobin 26.8 pg (28.0-33.3); Mean Corpuscular Volume 89.3 fL (83.0-100.0); Mean Platelet Volume 10.3 fL (9.4-12.4); Nucleated Red Blood Cells 0.4 /100 WBC (0); Platelet Count 313 K/mcL (140-400); Red Blood Count 2.91 M/mcL (3.82-4.97); Red Cell Distribution Width 15.2 % (11.5-14.5); White Blood Count 8.3 K/mcL (4.3-11.1)
[2021-12-24 06:25] LABS: Lymphocytes # 1.8 K/mcL (0.6-4.6); Monocytes # 0.5 K/mcL (0.0-1.3)
[2021-12-24 06:39] LABS: Alanine Aminotransferase 18 Units/L (7-52); Albumin 3.4 g/dL (3.5-5.7); Albumin/Globulin Ratio 1.3 (1.1-2.2); Alkaline Phosphatase 95 Units/L (34-104); Aspartate Amino Transferase 30 Units/L (13-39); BUN/Creatinine Ratio 22 (6-26); Bilirubin,Indirect 0.2 mg/dL (0.0-1.0); Bilirubin,Total 0.2 mg/dL (0.3-1.0); Blood Urea Nitrogen 14 mg/dL (8-23); Calcium 8.5 mg/dL (8.6-10.3); Carbon Dioxide 23 mEq/L (23-29); Chloride 101 mEq/L (98-107); Globulin 2.6 g/dL (2.4-3.5); Glucose 79 mg/dL (70-105); Magnesium 1.9 mg/dL (1.6-2.6); Osmolality,Calculated 277 (280-300); Potassium 3.5 mEq/L (3.5-5.1); Sodium 134 mEq/L (136-145); eGFR For African Americans > 60 (> 60); eGFR For Non-African Americans > 60 (> 60)
[2021-12-24] MEDS: Nicotine 21 MG PATCH.TD24 TD SCH (09:50)
[2021-12-24] MEDS: Pyridoxine (B-6) 50 MG TABLET PO SCH (09:51)
[2021-12-24] MEDS: Lactobacillus 1 EACH CAP.SPRINK PO SCH ×2 (09:51→22:24)
[2021-12-24] MEDS: Aspirin Enteric Coated 81 MG Tablet PO SCH (09:51)
[2021-12-24] MEDS: BuPROPion XL (24 HR) 150 MG TABLET PO SCH (09:51)
[2021-12-24] MEDS: Cholecalciferol (D-3) 1,000 UNIT (25MCG) TABLET PO SCH (09:51)
[2021-12-24] MEDS: Gabapentin 400 MG CAPSULE PO SCH ×3 (09:52→22:24)
[2021-12-24] MEDS: Iron Sucrose Complex 250 MG in 0.9 % Sodium Chloride 250 ML IVPB SCH (09:52)
[2021-12-24] MEDS: Loratadine 10 MG TABLET PO SCH (09:52)
[2021-12-24] MEDS: Pantoprazole 40 MG VIAL IVP SCH (09:57)
[2021-12-24] MEDS: Dexamethasone Sodium Phos/PF 10 MG/ML VIAL IVP SCH (09:58)
[2021-12-24] MEDS: Furosemide 40 MG/4 ML VIAL IVP SCH (09:58)
[2021-12-24] MEDS: levoFLOXacin 750 MG/150 ML 750 MG/150 ML BAG IVPB SCH ×2 (10:22→12:45)
[2021-12-24] MEDS: Remdesivir 100 MG in 0.9 % Sodium Chloride 100 ML IVPB SCH (16:06)
[2021-12-24] MEDS: Melatonin 3 MG TABLET PO PRN (22:23)
[2021-12-24] MEDS: *HR* OxyCODONE/APAP 7.5/325 TABLET PO PRN (22:24)
[2021-12-25] MEDS: Ipratropium 1 PUFF INHALER IH SCH ×4 (03:45→22:47)
[2021-12-25] MEDS: *HR* Enoxaparin 40 MG/0.4 ML SYRINGE SQ SCH (06:30)
[2021-12-25] MEDS: *HR* OxyCODONE/APAP 7.5/325 TABLET PO PRN (06:36)
[2021-12-25 06:39] LABS: Hematocrit 27.3 % (35.3-44.9); Hemoglobin 8.3 g/dL (11.5-15.4); Mean Corpuscular HGB Conc 30.4 g/dL (31.6-35.5); Mean Corpuscular Hemoglobin 26.9 pg (28.0-33.3); Mean Corpuscular Volume 88.6 fL (83.0-100.0); Mean Platelet Volume 10.4 fL (9.4-12.4); Nucleated Red Blood Cells 0.5 /100 WBC (0); Platelet Count 364 K/mcL (140-400); Red Blood Count 3.08 M/mcL (3.82-4.97); Red Cell Distribution Width 15.6 % (11.5-14.5)
[2021-12-25 07:03] LABS: BUN/Creatinine Ratio 15 (6-26); Blood Urea Nitrogen 10 mg/dL (8-23); Calcium 8.7 mg/dL (8.6-10.3); Carbon Dioxide 22 mEq/L (23-29); Chloride 101 mEq/L (98-107); Glucose 75 mg/dL (70-105); Magnesium 1.9 mg/dL (1.6-2.6); Osmolality,Calculated 274 (280-300); Potassium 3.5 mEq/L (3.5-5.1); Sodium 133 mEq/L (136-145); eGFR For African Americans > 60 (> 60); eGFR For Non-African Americans > 60 (> 60)
[2021-12-25 07:04] LABS: Albumin 3.7 g/dL (3.5-5.7); Albumin/Globulin Ratio 1.4 (1.1-2.2); Bilirubin,Indirect 0.2 mg/dL (0.0-1.0); Bilirubin,Total 0.2 mg/dL (0.3-1.0); Globulin 2.7 g/dL (2.4-3.5); Total Protein 6.4 g/dL (6.4-8.9)
[2021-12-25 08:05] LABS: Anisocytosis 1+ (Not Present); Eosinophils # 0.3 K/mcL (0.0-0.6); Lymphocytes # 2.9 K/mcL (0.6-4.6); Monocytes # 0.8 K/mcL (0.0-1.3); Neutrophils # 10.1 K/mcL (1.6-8.9); Platelet Estimate Normal (Normal); Polychromasia 1+ (Not Present)
[2021-12-25] MEDS: Pyridoxine (B-6) 50 MG TABLET PO SCH (08:19)
[2021-12-25] MEDS: BuPROPion XL (24 HR) 150 MG TABLET PO SCH (08:19)
[2021-12-25] MEDS: dexAMETHasone 4 MG TABLET PO SCH (08:19)
[2021-12-25] MEDS: Furosemide 40 MG/4 ML VIAL IVP SCH (08:19)
[2021-12-25] MEDS: Loratadine 10 MG TABLET PO SCH (08:19)
[2021-12-25] MEDS: Gabapentin 400 MG CAPSULE PO SCH ×3 (08:20→20:20)
[2021-12-25] MEDS: Nicotine 21 MG PATCH.TD24 TD SCH (08:20)
[2021-12-25] MEDS: Cholecalciferol (D-3) 1,000 UNIT (25MCG) TABLET PO SCH (08:20)
[2021-12-25] MEDS: Aspirin Enteric Coated 81 MG Tablet PO SCH (08:20)
[2021-12-25] MEDS: Lactobacillus 1 EACH CAP.SPRINK PO SCH ×2 (08:20→20:20)
[2021-12-25] MEDS ORDERED: Pantoprazole 40 MG VIAL IVP SCH (09:00)
[2021-12-25] MEDS: levoFLOXacin 750 MG/150 ML 750 MG/150 ML BAG IVPB SCH (11:01)
[2021-12-25] MEDS: Remdesivir 100 MG in 0.9 % Sodium Chloride 100 ML IVPB SCH (15:25)
[2021-12-25] MEDS: Melatonin 3 MG TABLET PO PRN (20:20)
[2021-12-26 01:53] LABS: Hematocrit 26.5 % (35.3-44.9); Hemoglobin 8.2 g/dL (11.5-15.4); Mean Corpuscular HGB Conc 30.9 g/dL (31.6-35.5); Mean Corpuscular Hemoglobin 27.4 pg (28.0-33.3); Mean Corpuscular Volume 88.6 fL (83.0-100.0); Mean Platelet Volume 10.2 fL (9.4-12.4); Nucleated Red Blood Cells 0.7 /100 WBC (0); Platelet Count 343 K/mcL (140-400); Red Blood Count 2.99 M/mcL (3.82-4.97); Red Cell Distribution Width 15.4 % (11.5-14.5); White Blood Count 16.4 K/mcL (4.3-11.1)
[2021-12-26 02:02] LABS: BUN/Creatinine Ratio 20 (6-26); Blood Urea Nitrogen 13 mg/dL (8-23); Calcium 8.3 mg/dL (8.6-10.3); Carbon Dioxide 22 mEq/L (23-29); Chloride 99 mEq/L (98-107); Glucose 91 mg/dL (70-105); Magnesium 1.8 mg/dL (1.6-2.6); Osmolality,Calculated 268 (280-300); Potassium 3.8 mEq/L (3.5-5.1); Sodium 129 mEq/L (136-145); eGFR For African Americans > 60 (> 60); eGFR For Non-African Americans > 60 (> 60)
[2021-12-26 02:03] LABS: Albumin 3.5 g/dL (3.5-5.7); Albumin/Globulin Ratio 1.3 (1.1-2.2); Bilirubin,Indirect 0.2 mg/dL (0.0-1.0); Bilirubin,Total 0.2 mg/dL (0.3-1.0); Globulin 2.7 g/dL (2.4-3.5); Total Protein 6.2 g/dL (6.4-8.9)
[2021-12-26 02:33] LABS: Hypochromasia Present (Not Present); Lymphocytes # 2.6 K/mcL (0.6-4.6); Monocytes # 0.3 K/mcL (0.0-1.3); Neutrophils # 13.5 K/mcL (1.6-8.9); Platelet Estimate Normal (Normal); Polychromasia 1+ (Not Present)
[2021-12-26] MEDS: Ipratropium 1 PUFF INHALER IH SCH ×2 (03:53→07:47)
[2021-12-26] MEDS: *HR* Enoxaparin 40 MG/0.4 ML SYRINGE SQ SCH (05:38)
[2021-12-26] MEDS: BuPROPion XL (24 HR) 150 MG TABLET PO SCH (08:39)
[2021-12-26] MEDS: dexAMETHasone 4 MG TABLET PO SCH (08:39)
[2021-12-26] MEDS: Aspirin Enteric Coated 81 MG Tablet PO SCH (08:40)
[2021-12-26] MEDS: Cholecalciferol (D-3) 1,000 UNIT (25MCG) TABLET PO SCH (08:40)
[2021-12-26] MEDS: Gabapentin 400 MG CAPSULE PO SCH (08:40)
[2021-12-26] MEDS: Loratadine 10 MG TABLET PO SCH (08:40)
[2021-12-26] MEDS: Lactobacillus 1 EACH CAP.SPRINK PO SCH (08:40)
[2021-12-26] MEDS: Pyridoxine (B-6) 50 MG TABLET PO SCH (08:40)
[2021-12-26] MEDS: Nicotine 21 MG PATCH.TD24 TD SCH (08:41)
[2021-12-26] MEDS ORDERED: Furosemide 40 MG/4 ML VIAL IVP SCH (09:00)
[2021-12-26] MEDS ORDERED: levoFLOXacin 750 MG TABLET PO SCH (09:00)
[2021-12-26 11:19] VITALS: BP 128/41; PULSE 106; TEMP 97.3; O2SAT 92
[2021-12-28] MEDS ORDERED: dexAMETHasone 4 MG TABLET PO SCH (09:00)
[2021-12-31] MEDS ORDERED: dexAMETHasone 4 MG TABLET PO SCH (09:00)
== END 2021-12-26 12:33 | disposition home or self-care (01) | DRG 177 ==
LOC: 2NENU 12:08 → EMEROOARM 12:08 → SUATTDRO 16:01 → 2NENU 17:29 → SUATTDRO 12-23 17:52
PROVIDERS: ADMIT Pharmacist; ATTEND Internal Medicine

== ENCOUNTER 2022-01-01 15:48 | Observation (INO) ==
[2022-01-01 16:25] LABS: Basophils # 0.1 K/mcL (0.0-0.2); Hematocrit 26.1 % (35.3-44.9); Hemoglobin 7.9 g/dL (11.5-15.4); Mean Corpuscular HGB Conc 30.3 g/dL (31.6-35.5); Mean Corpuscular Hemoglobin 27.6 pg (28.0-33.3); Mean Corpuscular Volume 91.3 fL (83.0-100.0); Mean Platelet Volume 10.9 fL (9.4-12.4); Nucleated Red Blood Cells 1.4 /100 WBC (0); Platelet Count 188 K/mcL (140-400); Red Blood Count 2.86 M/mcL (3.82-4.97); White Blood Count 10.2 K/mcL (4.3-11.1)
[2022-01-01] MEDS ORDERED: Ipratropium/Albuterol Neb 3 ML IH ONE (16:41)
[2022-01-01] MEDS ORDERED: predniSONE 20 MG TABLET PO ONE (16:41)
[2022-01-01 16:45] LABS: BUN/Creatinine Ratio 24 (6-26); Blood Urea Nitrogen 18 mg/dL (8-23); Calcium 8.2 mg/dL (8.6-10.3); Carbon Dioxide 23 mEq/L (23-29); Chloride 105 mEq/L (98-107); Glucose 127 mg/dL (70-105); Osmolality,Calculated 283 (280-300); Potassium 3.6 mEq/L (3.5-5.1); Sodium 135 mEq/L (136-145); Troponin I < 0.03 ng/mL (< 0.04); eGFR For African Americans > 60 (> 60); eGFR For Non-African Americans > 60 (> 60)
[2022-01-01] MEDS ORDERED: 0.9 % Sodium Chloride 1,000 ML IVC ONE (16:46)
[2022-01-01 16:59] LABS: Large Platelets Present (Not Present); Monocytes # 0.3 K/mcL (0.0-1.3); Neutrophils # 8.8 K/mcL (1.6-8.9); Platelet Estimate Normal (Normal)
[2022-01-01] MEDS ORDERED: Iopamidol - 370 500 ML MLS IVP ONE (18:56)
[2022-01-01] MEDS ORDERED: Naloxone 0.4 MG/ML INJ IVP PRN (19:49)
[2022-01-01] MEDS ORDERED: Ondansetron 4 MG/2 ML VIAL IVP PRN (19:54)
[2022-01-01] MEDS ORDERED: Melatonin 3 MG TABLET PO PRN (19:54)
[2022-01-01] MEDS: Benzonatate 100 MG CAPSULE PO PRN (21:44)
[2022-01-01] MEDS ORDERED: Benzonatate 100 MG CAPSULE PO PRN (22:16)
[2022-01-01] MEDS: Budesonide/Formoterol 160/4.5 1 PUFF INH IH SCH (23:13)
[2022-01-01] MEDS: Ipratropium/Albuterol Neb 3 ML IH SCH (23:13)
[2022-01-01] MEDS: Chlorhexidine Rinse 15 ML MOUTHWASH MM SCH (23:59)
[2022-01-01] MEDS: MethylPREDNISolone 40 MG/ML VIAL IVP SCH (23:59)
[2022-01-02] MEDS ORDERED: Saliva Stimulant 44.3ml BOTTLE PO PRN (00:28)
[2022-01-02] MEDS ORDERED: Saline Nasal Spray 44 ML BOTTLE NS PRN (00:28)
[2022-01-02] MEDS ORDERED: Furosemide 20 MG/2 ML VIAL IVP ONE (00:29)
[2022-01-02] MEDS: Calcium Gluconate 1gm/50mL 1 GM/50 ML BAG IVPB SCH ×2 (01:53→02:34)
[2022-01-02 02:14] LABS: Bilirubin,Urine Negative (Negative); Blood,Urine Negative (Negative); Clarity,Urine Clear (Clear); Color,Urine Light-Yellow (Yellow); Glucose,Urine (UA) Normal (Normal); Ketones,Urine Negative (Negative); Leukocyte Esterase,Urine Small (Negative); Nitrite,Urine Negative (Negative); PH,Urine 6.5 pH Units (5.0-8.0); Protein,Urine Trace mg/dL (Neg-Trace); RBC,Urine 0-3 per hpf (0-3); Specific Gravity,Urine > 1.030 (1.010-1.025); Squamous Epithelial Cell,Urine Few per hpf (None-Few); Urobilinogen,Urine Normal (Normal); WBC,Urine 0-3 per hpf (0-3)
[2022-01-02] MEDS: Ipratropium/Albuterol Neb 3 ML IH SCH ×6 (04:36→23:29)
[2022-01-02] MEDS: *HR* Enoxaparin 40 MG/0.4 ML SYRINGE SQ SCH (05:56)
[2022-01-02] MEDS: MethylPREDNISolone 40 MG/ML VIAL IVP SCH ×2 (05:56→10:43)
[2022-01-02 07:00] LABS: Hematocrit 27.3 % (35.3-44.9); Hemoglobin 8.3 g/dL (11.5-15.4); Mean Corpuscular HGB Conc 30.4 g/dL (31.6-35.5); Mean Corpuscular Hemoglobin 27.8 pg (28.0-33.3); Mean Corpuscular Volume 91.3 fL (83.0-100.0); Mean Platelet Volume 10.8 fL (9.4-12.4); Nucleated Red Blood Cells 1.4 /100 WBC (0); Platelet Count 197 K/mcL (140-400); Red Blood Count 2.99 M/mcL (3.82-4.97); Red Cell Distribution Width 17.7 % (11.5-14.5); White Blood Count 14.5 K/mcL (4.3-11.1)
[2022-01-02 07:16] LABS: INR 1.1; Prothrombin Time 12.4 Seconds (9.4-12.1)
[2022-01-02 07:18] LABS: Activated Partial Thrombo Time 45.4 Seconds (26.0-36.0)
[2022-01-02] MEDS: Budesonide/Formoterol 160/4.5 1 PUFF INH IH SCH ×2 (07:43→19:55)
[2022-01-02 08:10] LABS: Polychromasia 1+ (Not Present)
[2022-01-02 08:11] LABS: Anisocytosis 1+ (Not Present); Ferritin 181 ng/mL (10-120); Hypochromasia Present (Not Present); Lactate Dehydrogenase 437 Units/L (140-271)
[2022-01-02 08:12] LABS: Platelet Estimate Normal (Normal)
[2022-01-02 08:20] LABS: Alanine Aminotransferase 17 Units/L (7-52); Albumin 3.8 g/dL (3.5-5.7); Albumin/Globulin Ratio 1.4 (1.1-2.2); Alkaline Phosphatase 112 Units/L (34-104); Aspartate Amino Transferase 50 Units/L (13-39); BUN/Creatinine Ratio 28 (6-26); Bilirubin,Total 0.4 mg/dL (0.3-1.0); Blood Urea Nitrogen 15 mg/dL (8-23); Carbon Dioxide 21 mEq/L (23-29); Chloride 103 mEq/L (98-107); Globulin 2.7 g/dL (2.4-3.5); Glucose 116 mg/dL (70-105); Magnesium 1.7 mg/dL (1.6-2.6); Osmolality,Calculated 282 (280-300); Phosphorous 2.9 mg/dL (2.7-4.5); Potassium 3.7 mEq/L (3.5-5.1); Sodium 135 mEq/L (136-145); Total Protein 6.5 g/dL (6.4-8.9); eGFR For African Americans > 60 (> 60); eGFR For Non-African Americans > 60 (> 60)
[2022-01-02 08:48] LABS: Neutrophils # 12.8 K/mcL (1.6-8.9)
[2022-01-02] MEDS ORDERED: Multivit/Ca/Min/Fe/FA 1 TAB TABLET PO SCH (09:00)
[2022-01-02] MEDS: BuPROPion XL (24 HR) 150 MG TABLET PO SCH (10:43)
[2022-01-02] MEDS: Gabapentin 400 MG CAPSULE PO SCH ×3 (10:43→20:23)
[2022-01-02] MEDS: Benzonatate 100 MG CAPSULE PO PRN (10:43)
[2022-01-02] MEDS: Multivit/Ca/Min/Fe/FA 1 TAB TABLET PO SCH (10:44)
[2022-01-02] MEDS: hydrOXYzine pamoate 25 MG CAPSULE PO SCH (10:44)
[2022-01-02] MEDS: Pyridoxine (B-6) 50 MG TABLET PO SCH (10:44)
[2022-01-02] MEDS: Cholecalciferol (D-3) 1,000 UNIT (25MCG) TABLET PO SCH (10:44)
[2022-01-02] MEDS: Lactobacillus 1 EACH CAP.SPRINK PO SCH ×2 (10:44→20:23)
[2022-01-02] MEDS: Aspirin Enteric Coated 81 MG Tablet PO SCH (10:44)
[2022-01-02] MEDS: Artificial Tears SOLN 15 ML BOTTLE BOTH EYES SCH ×2 (10:45→20:22)
[2022-01-02] MEDS: Chlorhexidine Rinse 15 ML MOUTHWASH MM SCH (10:45)
[2022-01-02] MEDS: Nicotine 21 MG PATCH.TD24 TD SCH (10:45)
[2022-01-02] MEDS: Furosemide 40 MG TABLET PO SCH (10:51)
[2022-01-02 11:22] LABS: C-Reactive Protein 64 mg/L (Less than 10)
[2022-01-02] MEDS: predniSONE 20 MG TABLET PO SCH (15:50)
[2022-01-03] MEDS: Ipratropium/Albuterol Neb 3 ML IH SCH ×6 (04:16→23:34)
[2022-01-03] MEDS: *HR* Enoxaparin 40 MG/0.4 ML SYRINGE SQ SCH (04:39)
[2022-01-03] MEDS: Budesonide/Formoterol 160/4.5 1 PUFF INH IH SCH ×2 (08:00→20:19)
[2022-01-03] MEDS ORDERED: Iopamidol - 370 500 ML MLS IVP ONE (08:41)
[2022-01-03] MEDS ORDERED: Gadolinium Contrast Agent (WT Based) IV PRN (08:43)
[2022-01-03] MEDS: Aspirin Enteric Coated 81 MG Tablet PO SCH (09:37)
[2022-01-03] MEDS: Multivit/Ca/Min/Fe/FA 1 TAB TABLET PO SCH (09:37)
[2022-01-03] MEDS: Lactobacillus 1 EACH CAP.SPRINK PO SCH ×2 (09:37→20:15)
[2022-01-03] MEDS: Furosemide 40 MG TABLET PO SCH (09:37)
[2022-01-03] MEDS: Cholecalciferol (D-3) 1,000 UNIT (25MCG) TABLET PO SCH (09:37)
[2022-01-03] MEDS: BuPROPion XL (24 HR) 150 MG TABLET PO SCH (09:38)
[2022-01-03] MEDS: Gabapentin 400 MG CAPSULE PO SCH ×3 (09:38→20:22)
[2022-01-03] MEDS: Artificial Tears SOLN 15 ML BOTTLE BOTH EYES SCH ×2 (09:41→20:14)
[2022-01-03] MEDS: hydrOXYzine pamoate 25 MG CAPSULE PO SCH (09:41)
[2022-01-03] MEDS: Pyridoxine (B-6) 50 MG TABLET PO SCH (09:44)
[2022-01-03] MEDS: predniSONE 20 MG TABLET PO SCH ×2 (09:44→18:19)
[2022-01-03] MEDS: Nicotine 21 MG PATCH.TD24 TD SCH (09:46)
[2022-01-03] MEDS: Acetaminophen 325 MG TABLET PO PRN (20:16)
[2022-01-03] MEDS: Benzonatate 100 MG CAPSULE PO PRN (20:17)
[2022-01-04] MEDS: Ipratropium/Albuterol Neb 3 ML IH SCH ×4 (04:16→15:37)
[2022-01-04] MEDS: Pyridoxine (B-6) 50 MG TABLET PO SCH (07:17)
[2022-01-04] MEDS: Aspirin Enteric Coated 81 MG Tablet PO SCH (07:17)
[2022-01-04] MEDS: predniSONE 20 MG TABLET PO SCH (07:17)
[2022-01-04] MEDS ORDERED: *HR* Heparin 5,000 UNIT/ML VIAL ONE (07:17)
[2022-01-04] MEDS: BuPROPion XL (24 HR) 150 MG TABLET PO SCH (07:17)
[2022-01-04] MEDS: Cholecalciferol (D-3) 1,000 UNIT (25MCG) TABLET PO SCH (07:18)
[2022-01-04] MEDS: Furosemide 40 MG TABLET PO SCH (07:18)
[2022-01-04] MEDS: Multivit/Ca/Min/Fe/FA 1 TAB TABLET PO SCH (07:18)
[2022-01-04] MEDS: Lactobacillus 1 EACH CAP.SPRINK PO SCH (07:18)
[2022-01-04] MEDS: Artificial Tears SOLN 15 ML BOTTLE BOTH EYES SCH (07:18)
[2022-01-04] MEDS: hydrOXYzine pamoate 25 MG CAPSULE PO SCH (07:18)
[2022-01-04] MEDS ORDERED: *HR* Propofol 200 MG/20 ML VIAL IVP ONE ×2 (07:20→08:12)
[2022-01-04] MEDS ORDERED: *HR* FentaNYL (PF) 100 MCG/2 ML VIAL ONE (07:20)
[2022-01-04] MEDS: Acetaminophen 325 MG TABLET PO PRN (07:22)
[2022-01-04] MEDS: Nicotine 21 MG PATCH.TD24 TD SCH (07:25)
[2022-01-04] MEDS: Gabapentin 400 MG CAPSULE PO SCH (07:25)
[2022-01-04] MEDS ORDERED: Lidocaine -MPF 2% 5 ML VIAL ONE (07:29)
[2022-01-04] MEDS ORDERED: *HR* Midazolam HCl 2 MG/2 ML VIAL ONE (08:09)
[2022-01-04] MEDS ORDERED: CeFAZolin Syr 2,000MG/20 ML 2,000 MG/20 ML SYRINGE IVPB ONE (08:17)
[2022-01-04] MEDS ORDERED: Ondansetron 4 MG/2 ML VIAL ONE (08:30)
[2022-01-04] MEDS ORDERED: Ketamine HCL *QUVA* 50mg (1mL) SYRINGE ONE (08:40)
[2022-01-04] MEDS ORDERED: Albuterol Neb 7.5 MG, Ipratropium Neb 0.5 MG, Sodium Chloride for inhalation 9 ML IH ONE (09:17)
[2022-01-04] MEDS ORDERED: Albuterol 2.5 MG/3 ML NEBULIZER IH SCH (09:30)
[2022-01-04 10:59] VITALS: BP 128/58; PULSE 105; TEMP 97.8
[2022-01-04] MEDS: Budesonide/Formoterol 160/4.5 1 PUFF INH IH SCH (11:22)
[2022-01-04 13:28] VITALS: O2SAT 78
== END 2022-01-04 15:37 | disposition home or self-care (01) ==
LOC: 3ANU 15:48 → EMEROOARM 15:48 → SUATTDRO 20:20 → 3ANU 22:00
PROVIDERS: ADMIT Internal Medicine; ATTEND Internal Medicine

== ENCOUNTER 2022-01-14 12:00 | Observation (INO) ==
[2022-01-14 13:56] LABS: Red Cell Distribution Width 18.2 % (11.5-14.5)
[2022-01-14 13:58] LABS: Mean Corpuscular HGB Conc 30.7 g/dL (31.6-35.5); Mean Corpuscular Hemoglobin 27.5 pg (28.0-33.3); Mean Corpuscular Volume 89.8 fL (83.0-100.0); Mean Platelet Volume 11.5 fL (9.4-12.4); Platelet Count 112 K/mcL (140-400); Red Blood Count 1.67 M/mcL (3.82-4.97); White Blood Count 10.3 K/mcL (4.3-11.1)
[2022-01-14 14:01] LABS: Hemoglobin 4.6 g/dL (11.5-15.4)
[2022-01-14 14:11] LABS: INR 1.4; Prothrombin Time 15.4 Seconds (9.4-12.1)
[2022-01-14 14:14] LABS: Activated Partial Thrombo Time 33.2 Seconds (26.0-36.0)
[2022-01-14 14:21] LABS: Lymphocytes # 0.4 K/mcL (0.6-4.6); Neutrophils # 9.9 K/mcL (1.6-8.9)
[2022-01-14] MEDS ORDERED: Pantoprazole 40 MG VIAL IVP ONE (14:21)
[2022-01-14 14:23] LABS: Platelet Estimate Slight Decrease (Normal)
[2022-01-14 14:37] LABS: Alanine Aminotransferase 14 Units/L (7-52); Albumin 3.6 g/dL (3.5-5.7); Albumin/Globulin Ratio 1.6 (1.1-2.2); Alkaline Phosphatase 112 Units/L (34-104); Aspartate Amino Transferase 40 Units/L (13-39); BUN/Creatinine Ratio 32 (6-26); Bilirubin,Direct 0.1 mg/dL (0.0-0.2); Bilirubin,Indirect 0.3 mg/dL (0.0-1.0); Bilirubin,Total 0.4 mg/dL (0.3-1.0); Blood Urea Nitrogen 24 mg/dL (8-23); Calcium 8.5 mg/dL (8.6-10.3); Carbon Dioxide 25 mEq/L (23-29); Chloride 104 mEq/L (98-107); Globulin 2.3 g/dL (2.4-3.5); Glucose 98 mg/dL (70-105); Osmolality,Calculated 290 (280-300); Potassium 3.7 mEq/L (3.5-5.1); Sodium 138 mEq/L (136-145); Total Protein 5.9 g/dL (6.4-8.9); eGFR For African Americans > 60 (> 60); eGFR For Non-African Americans > 60 (> 60)
[2022-01-14 14:51] LABS: Troponin I < 0.03 ng/mL (< 0.04)
[2022-01-14] MEDS ORDERED: Cefepime HCl 2,000 MG in 0.9 % Sodium Chloride 10 ML IVP ONE (15:12)
[2022-01-14] MEDS ORDERED: 0.9 % Sodium Chloride 250 ML ONE (15:19)
[2022-01-14] MEDS ORDERED: *HR* OxyCODONE/APAP 7.5/325 TABLET PO PRN (17:14)
[2022-01-14] MEDS ORDERED: Melatonin 3 MG TABLET PO PRN (17:14)
[2022-01-14] MEDS ORDERED: Naloxone 0.4 MG/ML INJ IVP PRN (17:15)
[2022-01-14] MEDS ORDERED: Acetaminophen 325 MG TABLET PO PRN (17:15)
[2022-01-14] MEDS ORDERED: Ondansetron 4 MG/2 ML VIAL IVP PRN (17:15)
[2022-01-14] MEDS: Furosemide 20 MG/2 ML VIAL IVP SCH (17:27)
[2022-01-14] MEDS: Pantoprazole 40 MG VIAL IVP SCH (20:54)
[2022-01-14] MEDS: Gabapentin 400 MG CAPSULE PO SCH (20:54)
[2022-01-15 03:05] LABS: Mean Corpuscular Hemoglobin 28.3 pg (28.0-33.3); Red Blood Count 2.79 M/mcL (3.82-4.97); Red Cell Distribution Width 15.9 % (11.5-14.5)
[2022-01-15 03:08] LABS: Hematocrit 24.5 % (35.3-44.9); Hemoglobin 7.9 g/dL (11.5-15.4); Mean Corpuscular HGB Conc 32.2 g/dL (31.6-35.5); Mean Corpuscular Volume 87.8 fL (83.0-100.0); Mean Platelet Volume 11.4 fL (9.4-12.4); White Blood Count 9.2 K/mcL (4.3-11.1)
[2022-01-15 03:14] LABS: BUN/Creatinine Ratio 31 (6-26); Blood Urea Nitrogen 24 mg/dL (8-23); Carbon Dioxide 26 mEq/L (23-29); Chloride 103 mEq/L (98-107); Glucose 94 mg/dL (70-105); Osmolality,Calculated 288 (280-300); Potassium 3.9 mEq/L (3.5-5.1); Sodium 137 mEq/L (136-145); eGFR For African Americans > 60 (> 60); eGFR For Non-African Americans > 60 (> 60)
[2022-01-15] MEDS: Levalbuterol Neb 1.25 MG/3 ML IH SCH ×3 (03:17→15:59)
[2022-01-15] MEDS: Ipratropium Neb 0.5 MG NEBULIZER IH SCH ×3 (03:17→16:00)
[2022-01-15] MEDS ORDERED: *HR* HYDROcodone/Acet 5/325 mg TABLET PO PRN (07:56)
[2022-01-15] MEDS ORDERED: BuPROPion XL (24 HR) 150 MG TABLET PO SCH (09:00)
[2022-01-15] MEDS: Pantoprazole 40 MG VIAL IVP SCH (09:38)
[2022-01-15] MEDS: Gabapentin 400 MG CAPSULE PO SCH ×2 (09:38→16:44)
[2022-01-15] MEDS: Furosemide 20 MG/2 ML VIAL IVP SCH ×2 (09:39→16:44)
[2022-01-15] MEDS ORDERED: Furosemide 40 MG/4 ML VIAL IVP ONE (10:09)
[2022-01-15 14:01] VITALS: TEMP 97.4
[2022-01-15] MEDS ORDERED: *HR* Propofol 200 MG/20 ML VIAL IVP ONE (14:45)
[2022-01-15] MEDS ORDERED: Lidocaine -MPF 2% 5 ML VIAL ONE (14:45)
[2022-01-15 16:46] VITALS: BP 151/61; PULSE 107; O2SAT 93
== END 2022-01-15 20:10 | disposition home health service (06) ==
LOC: EMEROOARM 12:00 → 3NENU 12:00 → SUATTDRO 15:32 → 3NENU 16:53
PROVIDERS: ADMIT Internal Medicine; ATTEND Internal Medicine

== ENCOUNTER 2022-01-22 13:36 | Observation (INO) ==
[2022-01-22] MEDS ORDERED: Iron Sucrose Complex 400 MG in 0.9 % Sodium Chloride 250 ML IVPB ONE (14:38)
[2022-01-22 15:11] LABS: Immature Platelets 13.6 % (1.1-6.1); Mean Corpuscular Hemoglobin 29.4 pg (28.0-33.3); Mean Corpuscular Volume 91.9 fL (83.0-100.0); Mean Platelet Volume 11.7 fL (9.4-12.4); Nucleated Red Blood Cells 1.3 /100 WBC (0); Red Blood Count 1.36 M/mcL (3.82-4.97); Red Cell Distribution Width 18.5 % (11.5-14.5); White Blood Count 29.3 K/mcL (4.3-11.1)
[2022-01-22 15:17] LABS: Platelet Count 66 K/mcL (140-400)
[2022-01-22 15:19] LABS: Hematocrit 12.5 % (35.3-44.9)
[2022-01-22 15:25] LABS: Calcium 8.1 mg/dL (8.6-10.3); Potassium 2.6 mEq/L (3.5-5.1)
[2022-01-22 15:51] LABS: Lymphocytes # 1.2 K/mcL (0.6-4.6); Monocytes # 1.5 K/mcL (0.0-1.3); Neutrophils # 24.6 K/mcL (1.6-8.9)
[2022-01-22 15:52] LABS: Anisocytosis 3+ (Not Present); Platelet Estimate Decreased (Normal)
[2022-01-22] MEDS ORDERED: *HR* HYDROcodone/Acet 5/325 mg TABLET PO PRN (16:02)
[2022-01-22] MEDS ORDERED: Naloxone 0.4 MG/ML INJ IVP PRN (16:04)
[2022-01-22] MEDS ORDERED: Ondansetron 4 MG/2 ML VIAL IVP PRN (16:04)
[2022-01-22] MEDS ORDERED: Melatonin 3 MG TABLET PO PRN (16:13)
[2022-01-22] MEDS ORDERED: *HR* LORazepam 0.5 MG TABLET PO PRN (16:36)
[2022-01-22] MEDS ORDERED: Furosemide 40 MG/4 ML VIAL IVP ONE (18:00)
[2022-01-22] MEDS ORDERED: Pantoprazole 40 MG VIAL IVP SCH (18:00)
[2022-01-22] MEDS ORDERED: 0.9 % Sodium Chloride 250 ML ONE (20:40)
[2022-01-22] MEDS: Nicotine 21 MG PATCH.TD24 TD SCH (23:30)
[2022-01-22] MEDS: Lactobacillus 1 EACH CAP.SPRINK PO SCH ×2 (23:32→23:46)
[2022-01-22] MEDS: OLANZapine 5 MG TAB.RAPDIS PO SCH ×2 (23:32→23:46)
[2022-01-22] MEDS: Gabapentin 400 MG CAPSULE PO SCH ×2 (23:32→23:47)
[2022-01-23 08:39] LABS: Hemoglobin 7.4 g/dL (11.5-15.4); Immature Platelets 9.1 % (1.1-6.1); Mean Corpuscular HGB Conc 33.6 g/dL (31.6-35.5); Mean Corpuscular Hemoglobin 29.6 pg (28.0-33.3); Mean Platelet Volume 11.4 fL (9.4-12.4); Red Blood Count 2.5 M/mcL (3.82-4.97); Red Cell Distribution Width 15.9 % (11.5-14.5); White Blood Count 28.9 K/mcL (4.3-11.1)
[2022-01-23] MEDS: Gabapentin 400 MG CAPSULE PO SCH ×3 (08:45→19:50)
[2022-01-23] MEDS: BuPROPion XL (24 HR) 150 MG TABLET PO SCH (08:45)
[2022-01-23] MEDS: Lactobacillus 1 EACH CAP.SPRINK PO SCH ×2 (08:45→19:49)
[2022-01-23] MEDS: Furosemide 40 MG TABLET PO SCH (08:45)
[2022-01-23] MEDS: Nicotine 21 MG PATCH.TD24 TD SCH (08:46)
[2022-01-23] MEDS ORDERED: Aspirin Enteric Coated 81 MG Tablet PO SCH (09:00)
[2022-01-23 09:02] LABS: Calcium 7.7 mg/dL (8.6-10.3); Magnesium 1.7 mg/dL (1.6-2.6); Phosphorous 2.1 mg/dL (2.7-4.5); Potassium 2.3 mEq/L (3.5-5.1)
[2022-01-23] MEDS ORDERED: Furosemide 20 MG/2 ML VIAL IVP ONE (09:26)
[2022-01-23] MEDS: Pantoprazole 40 MG VIAL IVP SCH (11:57)
[2022-01-23 14:21] LABS: Hematocrit 22.8 % (35.3-44.9); Hemoglobin 7.7 g/dL (11.5-15.4); Mean Corpuscular HGB Conc 33.8 g/dL (31.6-35.5); Mean Corpuscular Hemoglobin 29.5 pg (28.0-33.3); Mean Corpuscular Volume 87.4 fL (83.0-100.0); Mean Platelet Volume 11.7 fL (9.4-12.4); Platelet Count 77 K/mcL (140-400); Red Blood Count 2.61 M/mcL (3.82-4.97); Red Cell Distribution Width 16.3 % (11.5-14.5); White Blood Count 26.6 K/mcL (4.3-11.1)
[2022-01-23 15:07] LABS: Calcium 7.7 mg/dL (8.6-10.3); Potassium 2.9 mEq/L (3.5-5.1)
[2022-01-23] MEDS: *HR* HYDROcodone/Acet 5/325 mg TABLET PO PRN (19:49)
[2022-01-24] MEDS: Pantoprazole 40 MG VIAL IVP SCH ×2 (00:11→12:20)
[2022-01-24 04:03] LABS: Hematocrit 20.7 % (35.3-44.9); Hemoglobin 6.8 g/dL (11.5-15.4); Immature Platelets 8.7 % (1.1-6.1); Mean Corpuscular HGB Conc 32.9 g/dL (31.6-35.5); Mean Corpuscular Hemoglobin 29.2 pg (28.0-33.3); Mean Corpuscular Volume 88.8 fL (83.0-100.0); Mean Platelet Volume 11.4 fL (9.4-12.4); Red Blood Count 2.33 M/mcL (3.82-4.97); Red Cell Distribution Width 17.1 % (11.5-14.5); White Blood Count 21.7 K/mcL (4.3-11.1)
[2022-01-24 04:51] LABS: Calcium 7.4 mg/dL (8.6-10.3); Magnesium 1.9 mg/dL (1.6-2.6)
[2022-01-24] MEDS ORDERED: 0.9 % Sodium Chloride 250 ML ONE (06:15)
[2022-01-24] MEDS: *HR* HYDROcodone/Acet 5/325 mg TABLET PO PRN ×2 (08:38→23:32)
[2022-01-24] MEDS: Lactobacillus 1 EACH CAP.SPRINK PO SCH ×2 (08:39→20:04)
[2022-01-24] MEDS: Furosemide 40 MG TABLET PO SCH (08:41)
[2022-01-24] MEDS: Gabapentin 400 MG CAPSULE PO SCH ×3 (08:41→20:04)
[2022-01-24] MEDS: Nicotine 21 MG PATCH.TD24 TD SCH (08:41)
[2022-01-24] MEDS: BuPROPion XL (24 HR) 150 MG TABLET PO SCH (08:41)
[2022-01-24] MEDS ORDERED: *HR* Propofol 200 MG/20 ML VIAL IVP ONE (09:10)
[2022-01-24] MEDS ORDERED: Lidocaine -MPF 2% 5 ML VIAL ONE (09:10)
[2022-01-24] MEDS: Ringers Solution, Lactated 1,000 ML IVC SCH (09:43)
[2022-01-24] MEDS ORDERED: *HR* Succinylcholine 200 MG/10 ML VIAL IVP ONE (10:54)
[2022-01-24 14:43] LABS: Nucleated Red Blood Cells 1.2 /100 WBC (0); Red Cell Distribution Width 17.2 % (11.5-14.5)
[2022-01-24 14:45] LABS: Hematocrit 25.9 % (35.3-44.9); Hemoglobin 8.7 g/dL (11.5-15.4); Immature Platelets 8.6 % (1.1-6.1); Mean Corpuscular HGB Conc 33.6 g/dL (31.6-35.5); Mean Corpuscular Hemoglobin 30.1 pg (28.0-33.3); Mean Corpuscular Volume 89.6 fL (83.0-100.0); Mean Platelet Volume 10.7 fL (9.4-12.4); Red Blood Count 2.89 M/mcL (3.82-4.97); White Blood Count 20.6 K/mcL (4.3-11.1)
[2022-01-24 14:48] LABS: Platelet Count 82 K/mcL (140-400)
[2022-01-24 15:00] LABS: Lymphocytes # 0.6 K/mcL (0.6-4.6); Monocytes # 0.6 K/mcL (0.0-1.3); Neutrophils # 19.4 K/mcL (1.6-8.9); Platelet Estimate Decreased (Normal)
[2022-01-24] MEDS: Acetaminophen 325 MG TABLET PO PRN (20:03)
[2022-01-25 01:52] LABS: Hemoglobin 7.7 g/dL (11.5-15.4); Mean Corpuscular Volume 90.2 fL (83.0-100.0); Red Cell Distribution Width 17.1 % (11.5-14.5); White Blood Count 20.7 K/mcL (4.3-11.1)
[2022-01-25 01:53] LABS: Hematocrit 22.9 % (35.3-44.9); Mean Corpuscular HGB Conc 33.6 g/dL (31.6-35.5); Mean Corpuscular Hemoglobin 30.3 pg (28.0-33.3); Mean Platelet Volume 11.3 fL (9.4-12.4); Nucleated Red Blood Cells 0.9 /100 WBC (0); Red Blood Count 2.54 M/mcL (3.82-4.97)
[2022-01-25 01:56] LABS: Platelet Count 85 K/mcL (140-400)
[2022-01-25 02:08] LABS: BUN/Creatinine Ratio 15 (6-26); Blood Urea Nitrogen 11 mg/dL (8-23); Carbon Dioxide 27 mEq/L (23-29); Chloride 103 mEq/L (98-107); Glucose 104 mg/dL (70-105); Magnesium 1.7 mg/dL (1.6-2.6); Osmolality,Calculated 278 (280-300); Potassium 3.7 mEq/L (3.5-5.1); Sodium 134 mEq/L (136-145)
[2022-01-25 03:01] LABS: Anisocytosis 1+ (Not Present); Lymphocytes # 0.6 K/mcL (0.6-4.6); Monocytes # 1.2 K/mcL (0.0-1.3); Platelet Estimate Decreased (Normal); Toxic Granulation Present (Not Present)
[2022-01-25 03:02] LABS: Macrocytosis Present (Not Present)
[2022-01-25] MEDS: Pantoprazole 40 MG VIAL IVP SCH (05:04)
[2022-01-25] MEDS: BuPROPion XL (24 HR) 150 MG TABLET PO SCH (08:09)
[2022-01-25] MEDS: Lactobacillus 1 EACH CAP.SPRINK PO SCH (08:10)
[2022-01-25] MEDS: Ringers Solution, Lactated 1,000 ML IVC SCH (08:10)
[2022-01-25] MEDS: Furosemide 40 MG TABLET PO SCH (08:10)
[2022-01-25] MEDS: Gabapentin 400 MG CAPSULE PO SCH (08:10)
[2022-01-25] MEDS: Nicotine 21 MG PATCH.TD24 TD SCH (08:11)
[2022-01-25] MEDS: Acetaminophen 325 MG TABLET PO PRN (08:18)
[2022-01-25 11:07] VITALS: BP 126/65; PULSE 94; TEMP 98.7; O2SAT 97
[2022-01-25] MEDS: *HR* HYDROcodone/Acet 5/325 mg TABLET PO PRN (11:19)
== END 2022-01-25 12:08 | disposition home or self-care (01) ==
LOC: 2ANU 13:36 → EMEROOARM 13:36 → 2ANU 20:11
PROVIDERS: ADMIT Internal Medicine; ATTEND Internal Medicine